=== PATIENT | female | born 1995 | race Caucasian/White ===

== ENCOUNTER 2023-11-25 19:24 | Outpatient (REF) | payer BC, SELFPAY | END 2023-11-25 19:25 | disposition home or self-care (01) | LOC: LAB 19:24 | PROVIDERS: PCP Physician Assistant; Visit Provider Obstetrics & Gynecology | DX: Z01.419 Encounter for gynecological examination (general) (routine) without abnormal findings (principal) | CPT/HCPCS: 88175 ==

== ENCOUNTER 2024-12-03 18:45 | Outpatient (REF) | payer BC, SELFPAY ==
--- OUTSIDE RECORDS SUMMARY | 2024-12-03 14:00 | XMS_ITS | Encounter Summary ---
Author Organization [facility] Address [address] [place] [address] Care Team Providers Care Vehicle Trimmer Name Role Phone Antolin Ruiz Primary Care Provider [phone] Reason for Visit * Reason Comments Well Women Visit Encounter Details Date Type Department Care Team (Late st Contact Info) Description 12/03/2024 2:00 PM EDT Office Visit [facility] [address] [place] [address] Daly Morillo PA [address] [place] [address] Well woman exam with routine gynecological exam Social History Tobacco Use Types Packs/Day Years Used Date Smoking Tobacco: Never Smokeless Tobacco: Never Alcohol Use Standard Drinks/Week Comments Not Currently 0 (1 standard drink = 0.6 oz pur e alcohol) occasional B1300 Health Literacy Answer Date Recor ded How often do you need to hav e someone help you when you read instructions, pamphlets, or other written material from your doctor or pharmacy? Never 10/14/2024 Humiliation, Afraid, Rape, and Kick questionnair e Answer Date Recorded Within the last year, have y ou been afraid of your partner or ex-partner? No 10/14/2024 Within the last year, have y ou been humiliated or emotionally abused in other ways by your partner or ex-partner? No Within the last year, have y ou been kicked, hit, slapped, or otherwise physically hurt by your partner or ex-partner? No 10/14/2024 Within the last year, have y ou been raped or forced to have any kind of sexual activity by your partner or ex-partner? No 10/14/2024 Social Connection and Isolat ion Panel [NHANES] Answer Date Recorded In a typical week, how many times do you talk on the phone with family, friends, or neighbors? More than three times a week 10/14/2024 How often do you get togethe r with friends or relatives? Twice a week 10/14/2024 How often do you attend chur or scientology services? Never 10/14/2024 Do you belong to any clubs o r organizations such as amish groups, unions, fraternal or athletic groups, or school groups? No 10/14/2024 How often do you attend meet ings of the clubs or organizations you belong to? Never 10/14/2024 Are you , , di vorced, , never , or living with a partner? Never 10/14/2024 AUDIT-C Answer Date Recorded Q1: How often do you have a drink containing alc ohol? 2-4 times a month 10/14/2024 Q2: How many drinks containi ng alcohol do you have on a typical day when you are drinking? 3 or 4 10/14/2024 Q3: How often do you have si x or more drinks on one occasion? Never 10/14/2024 Overall Financial Resource Strain (CARDIA) Answe r Date Recorded How hard is it for you to pa y for the very basics like food, housing, medical care, and heating? Not hard at all 10/14/2024 PHQ-2 Answer Date Recorded Patient Health Questionnaire-2 Score 2 10/14/2024 [facility] - Occupational Stress Questionnaire Answer Date Recorded Do you feel stress - tense, restless, nervous, or anxious, or unable to sleep at night because your mind is troubled all the time - these days? Rather much 10/14/2024 Exercise Vital Sign Answer Date Recorde d On average, how many days pe r week do you engage in moderate to strenuous exercise (like a brisk walk)? 0 days 10/14/2024 On average, how many minutes do you engage in exercise at this level? 0 min 10/14/2024 Hunger Vital Sign Answer Date Recorded Within the past 12 months, y ou worried that your food would run out before you got the money to buy more. Never true 10/15/19 25 Within the past 12 months, t he food you bought just didn't last and you didn't have money to get more. Never true 10/14/2024 PRAPARE - Transportation Answer Date Re corded In the past 12 months, has l ack of transportation kept you from medical appointments or from getting medications? No 05/2024 In the past 12 months, has l ack of transportation kept you from meetings, work, or from getting things needed for daily living? No 10/14/2024 Housing Stability Vital Sign Answer Ismael e Recorded In the last 12 months, was t here a time when you were not able to pay the mortgage or rent on time? No 10/14/2024 Number of Times Moved in the Last Year Not on fi le 10/14/2024 At any time in the [facility] were you homeless or living in a half-way (including now)? No 10/14/2024 Comments No Sex and Gender Information Value Date Recorded Sex Assigned at Not on file Legal Sex Female 8:15 PM EDT Gender Identity Not on file Sexual Orientation Not on file documented as of this encounter Last Filed Vital Signs Vital Sign Reading Time Taken Comments Blood Pressure 120/86 12/03/2024 1:55 PM EDT Pulse - - Temperature - - Respiratory Rate - - Oxygen Saturation - - Inhaled Oxygen Concentration - - Weight 82.4 kg (181 lb 12 oz) 12/03/2024 1:55 PM EDT Height 167.6 cm (5' 6 ) 12/03/2024 1:55 PM EDT Body Mass Index 29.34 12/03/2024 1:55 PM EDT documented in this encounter Progress Notes * BRENDA Espinoza - 12/03/2024 2:00 PM EDT Reason for Appointment: Patient ID: Tian Wade is a 29 y.o. female who presents for Well Women Visit Patient presents today for Annual Exam. MEDICATIONS Current Outpatient Medications Medication Instructions busPIRone (BUSPAR) 30 mg, Oral, 2 times daily citalopram (CELEXA) 40 mg, Oral, Daily ALLERGIES No Known Allergies PROBLEMS Active Ambulatory Problems Diagnosis Date Noted ADORE (generalized anxiety disorder) 10/25/2022 Depression 10/25/2022 Dysmenorrhea 10/25/2022 Vitamin D deficiency 10/25/2022 Resolved Ambulatory Problems Diagnosis Date Noted Acute pelvic pain 10/25/2022 Atypical squamous cells of undetermined significance (ASCUS) on Papanicolaou smear of cervix 10/25/2022 Dyslipidemia 10/25/2022 Dysuria 10/25/2022 Fatty liver 10/25/2022 Gastritis and duodenitis 10/25/2022 Headache disorder 10/25/2022 Migraine with aura and without status migrainosus, not intractable 10/25/2022 Migraine without aura and responsive to treatment 10/25/2022 Obesity 10/25/2022 Seasonal allergic rhinitis due to pollen 10/25/2022 Seasonal allergies 10/25/2022 Past Medical History: Diagnosis Date Anemia Anxiety ASCUS of cervix with negative high risk HPV Asthma (HCC) Goiter Migraine headache Vaginal delivery ([facility]-HCC) HISTORY PAST MEDICAL HISTORY SOCIAL HISTORY Past Medical History: Diagnosis Date Acute pelvic pain Anemia Anxiety ASCUS of cervix with negative high risk HPV Asthma (HCC) Atypical squamous cells of undetermined significance (ASCUS) on Papanicolaou smear of cervix 10/25/2022 Depression Dysmenorrhea Gastritis and duodenitis 10/25/2022 Goiter Migraine headache Migraine without aura and responsive to treatment 10/25/2022 Vaginal delivery ([facility]) Social History Tobacco Use Smoking status: Never Smokeless tobacco: Never Substance Use Topics Alcohol use: Not Currently Comment: occasional Drug use: Never FAMILY HISTORY Family History Problem Relation Name Age of Onset Obesity Mother Depression Mother Allergies Mother Other (thyroid issue) Mother Hypertension Mother Anemia Daughter Other (hx of kidney reflux) Daughter Anemia Maternal Grandmother Other (thyroid issue) Maternal Grandmother Mental illness Maternal Grandmother Diabetes Maternal Grandfather Hyperlipidemia Maternal Grandfather Heart disease Maternal Grandfather Cancer Maternal Grandfather Diabetes Paternal Grandmother Diabetes Paternal Grandfather SURGICAL HISTORY Past Surgical History: Procedure Laterality Date SECTION, CLASSIC 07/25/2022 SECTION, LOW TRANSVERSE REVIEW OF SYSTEMS Review of Systems: Review of Systems Constitutional: Negative. HENT: Negative. Eyes: Negative. Respiratory: Negative. Cardiovascular: Negative. Gastrointestinal: Negative. Genitourinary: Negative. Musculoskeletal: Negative. Skin: Negative. Neurological: Negative. All other systems reviewed and are negative. Hematological: Negative. Endocrine: Negative. Allergic/Immunologic: Negative. OBJECTIVE Objective: Physical Exam Constitutional: Appearance: Normal appearance. She is well-developed. Genitourinary: Vulva normal. Right Adnexa: not tender and no mass present. Left Adnexa: not tender and no mass present. No cervical discharge. IUD strings visualized. Breasts: Breasts are soft. Right: Normal. Left: Normal. HENT: Head: Normocephalic. Nose: Nose normal. Mouth/Throat: Mouth: Mucous membranes are moist. Cardiovascular: Rate and Rhythm: Normal rate and regular rhythm. Pulmonary: Effort: Pulmonary effort is normal. Breath sounds: Normal breath sounds. Abdominal: General: Bowel sounds are normal. There is no distension. Palpations: Abdomen is soft. Tenderness: There is no abdominal tenderness. There is no guarding or rebound. Musculoskeletal: General: No swelling. Normal range of motion. Cervical back: Normal range of motion. Right lower leg: No edema. Left lower leg: No edema. Neurological: General: No focal deficit present. Mental Status: She is alert and oriented to person, place, and time. Skin: General: Skin is warm and dry. Psychiatric: Mood and Affect: Mood normal. Behavior: Behavior normal. Vitals and nursing note reviewed. Exam conducted with a human resources associate present. Vitals: Estimated body mass index is 29.34 kg/m?? as calculated from the following: Height as of this encounter: 5' 6 . Weight as of this encounter: 181 lb 12 oz. BP: 120/86 No LMP recorded (lmp unknown). (Menstrual status: IUD). ASSESSMENT & PLAN ICD-10-CM 1. Well woman exam with routine gynecological exam Z01.419 Pap Smear HPV DNA probe, amplified Annual Exam: Patient presents today for an annual exam. Patient states she is doing well and has no complaints. Pap was obtained without difficulty. Orders Placed This Encounter Procedures HPV DNA probe, amplified Follow Up: Patient is to return in one year for annual unless needed otherwise. Documented by Sharla Hewitt LPN on behalf of: BRENDA Espinoza documented in this encounter Plan of Treatment Upcoming Encounters Date Type Department Care Team (Late st Contact Info) Description 12/06/2025 1:00 PM EDT Procedure Visit [facility] [address] [place] [address] Irving Trinidad DO [address] [place] [address] Scheduled Orders Name Type Priority Associated Diagnoses Orde r Schedule Pap Smear Pathology and Cytology Routine Well woman exam with routine gynecological exam Ordered: 12/03/2024 HPV DNA probe, amplified Microbiology Routine Well woman exam with routine gynecological exam Ordered: 12/03/2024 documented as of this encounter Visit Diagnoses Diagnosis Well woman exam with routine gynecological exam Routine gynecological examination documented in this encounter Additional Health Concerns Assessment Noted Time PHQ-9 Depression Total Score: 11 025 1:46 PM EDT documented as of this encounter Care Teams Vehicle Trimmer Relationship Specialty Start Date End Date Antolin Ruiz DO [address] [place] [id number] PCP - General Family Medicine 08/21/22 documented as of this encounter
--- OUTSIDE RECORDS SUMMARY | 2024-12-03 18:48 | XMS_ITS | Encounter Summary ---
Author Organization [facility] Address [address] [facility] [place] [address] Care Team Providers Care Mill Operator Helper Name Role Phone Antolin Ruiz Primary Care Provider [phone] Encounter Details Date Type Department Care Team (Late st Contact Info) Description 12/03/2024 Bamboo flowsheet [facility] [address] [place] [address] Daly Morillo PA [address] [place], [facility] Social History Tobacco Use Types Packs/Day Years [...] How often do you attend chur or restorationist services? Never 10/14/2024 Do you belong to any clubs o r organizations such as roman catholic groups, unions, [employer] or athletic groups, or school groups? No [...] Recorded Patient Health Questionnaire-2 Score 2 10/14/2024 [facility] - Occupational Stress Questionnaire Answer Date [...] any time in the past 12 m [facility], were you homeless or living in a care home (including now)? No 10/14/2024 Comments No Sex and Gender Information Value Date Recorded Sex Assigned at Not on file Legal Sex Female 8:15 PM EDT Gender Identity Not on file Sexual Orientation Not on file documented as of this encounter Plan of Treatment Upcoming Encounters Date Type Department Care Team (Late st Contact Info) Description 12/06/2025 1:00 PM EDT Procedure Visit [facility] [address] [place] [address] Irving Trinidad DO [address] [place], [place] [id number] documented as of this encounter Visit Diagnoses Not on filedocumented in this encounter Additional Health Concerns Assessment Noted Time PHQ-9 Depression Total Score: 11 025 1:46 PM EDT documented as of this encounter Care Teams Mill Operator Helper Relationship Specialty Start Date End Date Antolin Ruiz DO [address] [place], [place] [id number] PCP - General Family Medicine 08/21/22 documented as of this encounter
--- OUTSIDE RECORDS SUMMARY | 2024-12-03 18:48 | XMS_ITS | Encounter Summary ---
Author Organization [facility] Address [address], [address] [place] [address] Care Team Providers Care Cryptanalyst Name Role Phone Antolin Ruiz DO Primary Care Provider Reason for Visit * Reason Comments Medication Refill Encounter Details Date Type Department Care Team (Late st Contact Info) Description 05/06/2016 Refill [facility] [place] [address] [place] [phone] Lesley Grant APRN - LYLE [address] [facility] [address] [place] [address] Medication Refill Social History Tobacco Use Types Packs/Day Years Used Date Smoking Tobacco: Never Smokeless Tobacco: Never Alcohol Use Standard Drinks/Week Comments No 0 (1 standard drink = 0.6 oz pur e alcohol) Comments No Sex and Gender Information Value Date Recorded Sex Assigned at Not on file Legal Sex Female 6:42 PM EST Gender Identity Not on file Sexual Orientation Not on file documented as of this encounter Plan of Treatment Not on file documented as of this encounter Visit Diagnoses Not on filedocumented in this encounter Care Teams Cryptanalyst Relationship Specialty Start Date End Date Antolin Ruiz DO [address] [place] [address] PCP - General Family Medicine 06/27/17 documented as of this encounter
--- OUTSIDE RECORDS SUMMARY | 2024-12-03 18:48 | XMS_ITS | Encounter Summary ---
Author Organization [facility] Address [address] [facility] [place] [address] Care Team Providers Care Electrical Troubleshooter Name Role Phone zeenat Nicolle Geoff FRONT OFFICE CLERK Unavailable [phone] Antolin Ruiz DO Primary Care Provider [phone] Dayna Rodriguez FRONT OFFICE CLERK Unavailable + zeenat Nicolle Tellez FRONT OFFICE CLERK Unavailable [phone] Encounter Details Date Type Department Care Team (Late Contact Info) Description 10/26/2022 Abstract [facility] [address] [facility] [place] [address] Daly Morillo PA [address] [facility] [address] [place] [address] Social History Tobacco Use Types Packs/Day Years Used Date Smoking Tobacco: Never Tobacco Cessation:Counseling Given: Not Answered Alcohol Use Standard Drinks/Week Comments Not Currently 0 (1 standard drink = 0.6 oz pur e alcohol) occasional Comments Unknown Sex and Gender Information Value Date Recorded Sex Assigned at Not on file Legal Sex Female 8:15 PM EDT Gender Identity Not on file Sexual Orientation Not on file documented as of this encounter Plan of Treatment Upcoming Encounters Date Type Department Care Team (Late Contact Info) Description 12/06/2025 1:00 PM EDT Procedure Visit [facility] [address] [facility] [place] [place] [address] Irving Trinidad DO [address] [facility] [place] [address] documented as of this encounter Visit Diagnoses Not on filedocumented in this encounter Care Teams Electrical Troubleshooter Relationship Specialty Start Date End Date Nicolle Anne NP [address] [place] [address] PCP - [facility] 10/13/22 Antolin Ruiz DO [address] [place] [address] PCP - General Family Medicine 08/21/22 Dayna Rodriguez NP [address] [place] [address] PCP - [facility] 06/14/23 Nicolle Anne NP [address] [place] [address] PCP - [facility] 09/14/23 documented as of this encounter
--- OUTSIDE RECORDS SUMMARY | 2024-12-03 18:48 | XMS_ITS | Encounter Summary ---
Author Organization [facility] Address [address] [place] [address] Care Team Providers Care Broodmare Foreman Name Role Phone Antolin Ruiz DO Primary Care Provider Reason for Visit * Reason Comments Medication Refill Encounter Details Date Type Department Care Team (Late st Contact Info) Description 09/19/2015 Refill [facility] [place] [address] [place] [address] [place] [phone] Lesley Grant APRN - LYLE [address] [facility] [address] [place] [address] Medication Refill Social History Tobacco [...] on filedocumented in this encounter Care Teams Broodmare Foreman Relationship Specialty Start Date End Date Antolin Ruiz DO [address] [place] [address] PCP - General Family Medicine 06/27/17 documented as of this encounter
--- OUTSIDE RECORDS SUMMARY | 2024-12-03 18:48 | XMS_ITS | Encounter Summary ---
Author Organization [facility] Address [address] [place] [address] Care Team Providers Care Cable Hooker Name Role Phone Antolin Ruiz DO Primary Care Provider [phone] Reason for Visit * Reason Comments Other Encounter Details Date Type Department Care Team (Late st Contact Info) Description 06/01/2014 [facility] [place] [address] [place] [address] Lesley Grant APRN - CN [address] [facility] [address] [place] [address] Other Social History Tobacco Use Types Packs/Day Years [...] on filedocumented in this encounter Care Teams Cable Hooker Relationship Specialty Start Date End Date Antolin Ruiz DO [address] [place] [address] PCP - General Family Medicine 06/27/17 documented as of this encounter
--- OUTSIDE RECORDS SUMMARY | 2024-12-03 18:48 | XMS_ITS | Encounter Summary ---
Author Organization [facility] Address [address] [place] [address] Care Team Providers Care Maternity Floor Supervisor Name Role Phone Antolin Ruiz DO Primary Care Provider Reason for Visit * Reason Comments Medication Refill Encounter Details Date Type Department Care Team (Late st Contact Info) Description 01/07/2017 Refill [facility] [place] [address] [place] [phone] Lesley Grant APRN - LYLE [address] [facility] [address] [place] [address] Medication Refill Social History Tobacco Use Types Packs/Day Years Used Date Smoking Tobacco: Never Smokeless Tobacco: Never Alcohol Use Standard Drinks/Week Comments No 0 (1 standard drink = 0.6 oz pur e alcohol) Comments Unknown Sex and Gender Information Value Date Recorded Sex Assigned at Not on file Legal Sex Female 6:42 PM EST Gender Identity Not on file Sexual Orientation Not on file documented as of this encounter Plan of Treatment Not on file documented as of this encounter Visit Diagnoses Diagnosis Routine gynecological examination documented in this encounter Care Teams Maternity Floor Supervisor Relationship Specialty Start Date End Date Antolin Ruiz DO [address] [place] [address] PCP - General Family Medicine 06/27/17 documented as of this encounter
--- OUTSIDE RECORDS SUMMARY | 2024-12-03 18:48 | XMS_ITS | Clinical Summary ---
Author Organization [facility] Address [address] [place] [address] Care Team Providers Care Fleet Service Clerk Name Role Phone Joseph Antolin Aguayo DO Primary Care Provider [phone] Allergies No known active allergies Medications busPIRone (Buspar) 30 MG tabletIndicatio ns:Generalized anxiety disorder Take 1 tablet (30 mg) by mouth in the morning and 1 tablet (30 mg) before bedtime. 60 tablet 11 08/03/2024 Active citalopram (CeleXA) 40 MG tabletIndicatio ns:Anxiety TAKE 1 TABLET BY MOUTH DAILY 90 tablet 1 10/11/2024 Active Hospital, Clinic, or Other Facility Administered Medication Ordered Dose Route Frequency Start Date End Date Status Levonorgestrel intrauterine device 52 mgIndications:Encounter for IUD insertion 52 mg IU Continuous 11/19/2023 11/17/2028 Active Active Problems Problem Noted Date Diagnosed Date ADORE (generalized anxiety disorder) 10/25/2022 Depression 10/25/2022 Dysmenorrhea 10/25/2022 Vitamin D deficiency 10/25/2022 Resolved Problems Problem Noted Date Diagnosed Date Resolved Date Acute pelvic pain 10/25/2022 05/06/2023 Atypical squamous cells of u ndetermined significance (ASCUS) on Papanicolaou smear of cervix 10/25/2022 05/06/2023 Dyslipidemia 10/25/2022 05/06/2023 Dysuria 10/25/2022 05/06/2023 Fatty liver 10/25/2022 05/06/2023 Gastritis and duodenitis 10/25/2022 Headache disorder 10/25/2022 05/06/2023 Migraine with aura and witho ut status migrainosus, not intractable 10/25/2022 05/06/2023 Migraine without aura and re sponsive to treatment 10/25/2022 05/06/2023 Obesity 10/25/2022 05/06/2023 Seasonal allergic rhinitis due to pollen 10/25/2022 05/06/2023 Seasonal allergies 10/25/2022 Encounters Date Type Department Care Team Description 12/03/2024 2:00 PM EDT Office Visit [facility] [address] [place] [address] Daly Morillo PA Well woman exam with routine gynecological exam 12/03/2024 Bamboo flowsheet [facility] OBGYJonnathan [address] [place] [address] Daly Morillo PA 11/26/2024 Travel 10/14/2024 1:00 PM EDT Office Visit [facility] [address] [place] [address] Dayna Rodriguez, ORI Wellness examination (Primary Dx); Weight gain; Dysmenorrhea; ADORE (generalized anxiety disorder) ; Recurrent major depressive disorder, in partial remission ; Screening for cardiovascular condition; Blood tests for routine general physical examination; Abnormal glucose; Screening for thyroid disorder; Vitamin D deficiency; Encounter for vitamin deficiency screening; Screening for lipid disorders; Screening for diabetes mellitus (DM) 10/14/2024 Bamboo flowsheet [facility] [address] [facility] [place] [address] Dayna Rodriguez NP 10/14/2024 Travel 10/10/2024 Refill [facility] [address] [facility] [place] [address] Dayna Rodriguez, ORI Anxiety 09/11/2024 Refill [facility] [address] [place] [address] Harrison, Anali, STRUCTURAL METAL FABRICATOR APPRENTICE Anxiety from Last 3 Months Immunizations Immunization Administration Dates Next Due DTP 02/05/1996 DTP / HiB 02/14/1995,1994,1994 DTaP, Unspecified 11/30/1999,09/02/1997 HPV, Quadrivalent 05/18/2010,12/08/2009,10/07/19 10 Hep A, ped/adol, 2 dose 05/18/2010,10/06/2009 Hep B, Adolescent or Pediatric 02/14/1995,1994,1994 HiB, unspecified 09/02/1997 Influenza Whole 04/02/2013 Influenza, injectable, quadrivalent 01/12/2019 Influenza, injectable, quadr ivalent, preservative free 02/08/2022,03/02/2021 Influenza, seasonal, injectable 05/29/2020 Influenza, seasonal, injecta ble, preservative free 02/22/2011,02/08/2010 MMR 09/02/1997,02/05/1996 Meningococcal MCV4P 10/06/2009 Novel Aisoalyiq-[id number], nasal 03/04/2009 OPV 02/14/1995,1994,1994 Polio, Unspecified 11/30/1999 Tdap 04/01/2013,12/27/2008 Family History Medical History Relation Name Comments Anemia Daughter hx of kidney reflux Daughter Cancer Maternal Grandfather Diabetes Maternal Grandfather Heart disease Maternal Grandfather Hyperlipidemia Maternal Grandfather Anemia Maternal Grandmother Mental illness Maternal Grandmother thyroid issue Maternal Grandmother Allergies Mother Depression Mother Hypertension Mother Obesity Mother thyroid issue Mother Diabetes Paternal Grandfather Diabetes Paternal Grandmother Relation Name Status Comments Brother 1 Daughter 1 Father Alive Maternal Grandfather Alive Maternal Grandmother Alive Mother Alive Paternal Grandfather Paternal Grandmother Alive Sister 1 Social History Tobacco Use Types Packs/Day Years Used Date Smoking Tobacco: Never Smokeless Tobacco: Never Tobacco Cessation:Counseling Given: Not Answered [...] week 10/14/2024 How often do you attend [facility] or tenriism services? Never 10/14/2024 Do you belong to any clubs o r organizations such as cheondoism groups, unions, fraternal or athletic groups, or [...] Recorded Patient Health Questionnaire-2 Score 2 10/14/2024 [facility] - Occupational Stress [...] any time in the past 12 m [facility], were you homeless or living in a nursing home (including now)? No 10/14/2024 Comments No Sex and Gender Information Value Date Recorded Sex Assigned at Not on file Legal Sex Female 8:15 PM EDT Gender Identity Not on file Sexual Orientation Not on file Last Filed Vital Signs Vital Sign Reading Time Taken Comments Blood Pressure 120/86 12/03/2024 1:55 PM EDT Pulse 86 10/14/2024 1:14 PM EDT Temperature 35.5 C (95.9 F) 05/05/2024 9:33 AM EST Respiratory Rate - - Oxygen Saturation 98% 10/14/2024 1:14 PM EDT Inhaled Oxygen Concentration - - Weight 82.4 kg (181 lb 12 oz) 12/03/2024 1:55 PM EDT Height 167.6 cm (5' 6 ) 12/03/2024 1:55 PM EDT Body Mass Index 29.34 12/03/2024 1:55 PM EDT Plan of Treatment Upcoming Encounters Date Type Department Care Team (Late st Contact Info) Description 12/06/2025 1:00 PM EDT Procedure Visit [facility] [address] [place] [address] Irving Trinidad, [address] [place] [address] Health Maintenance Due Date Last Done Comments Influenza Vaccine (#1) 2024 , 03/02/2021, 05/29/2020, Additional history exists HPV/Cotest 06/16/2025 06/16/2020 Cervical Cancer Screening 11/24/2026 Pap Smear 11/24/2026 11/25/2023, 07/14, 01/07/2018, Additional history exists Procedures Procedure Name Priority Date/Time Associated Diagnosis Comments PAP SMEAR Routine 11/25/2023 12:00 AM EDT THINPREP AND HPV Routine 06/16/2020 12:0 0 PM EST from Last 3 Months or Most Recently Relevant to Health Maintenance Results * Pap Smear (11/25/2023 12:00 AM EDT) Swab Cervical swab / Unknown us Daly [facility] CYTOLOGY ORDERABLES Final Re sult EXTERNAL LAB * THINPREP AND HPV (06/16/2020 12:00 PM EST) PAP RESULTS negative [facility] 06/16/2020 12:0 0 PM EST us Nicolle Anen GUNNER'S MATE [facility] Final Result [facility] from Last 3 Months or Most Recently Relevant to Health Maintenance Insurance [facility] Care Teams Fleet Service Clerk Relationship Specialty Start Date End Date Antolin Ruiz DO [address] [place] [address] PCP - General Family Medicine 08/21/22
--- OUTSIDE RECORDS SUMMARY | 2024-12-03 18:48 | XMS_ITS | Clinical Summary ---
Author Organization [facility] Address [id number] [address] [place] [address] Care Team Providers Care Sports Centre Manager Name Role Phone Unavailable Primary Care Provider Unavailabl e Social History Tobacco Use Types Packs/Day Years Used Date Smoking Tobacco: Never Assessed Childcare Answer Date Recorded Childcare Unknown 09/22/2018 Employment Answer Date Recorded Employment Unknown 09/22/2018 Purpose - Life Answer Date Recorded Purpose and direction in life Unknown Comments Unknown Sex and Gender Information Value Date Recorded Sex Assigned at Not on file Legal Sex Female 2:07 PM EDT Gender Identity Not on file Sexual Orientation Not on file Plan of Treatment Not on file Medical Devices Not on file Insurance [employer]
--- OUTSIDE RECORDS SUMMARY | 2024-12-03 18:48 | XMS_ITS | Encounter Summary ---
Author Organization [facility] Address [address] [place] [address] Care Team Providers Care Aircraft Accessories Mechanic Name Role Phone JosephAntolin sanz Primary Care Provider [phone] Dayna Rodriguez CONTROL ELECTRICIAN Unavailable [phone] Nicolle Anne CONTROL ELECTRICIAN Unavailable [phone] Encounter Details Date Type Department Care Team (Late Contact Info) Description 08/05/2023 Abstract [facility] [address] [place] [address] Nicolle Anne CONTROL ELECTRICIAN [address] [place] [address] Social History Tobacco Use Types Packs/Day Years Used Date Smoking Tobacco: Never Smokeless Tobacco: Never Alcohol Use Standard Drinks/Week Comments Not Currently 0 (1 standard drink = 0.6 oz pur e alcohol) occasional PHQ-2 Answer Date Recorded Patient Health Questionnaire-2 Score 0 04/22/2023 Comments No Sex and Gender Information Value Date Recorded Sex Assigned at Not on file Legal Sex Female 8:15 PM EDT Gender Identity Not on file Sexual Orientation Not on file documented as of this encounter Plan of Treatment Upcoming Encounters Date Type Department Care Team (Late Contact Info) Description 12/06/2025 1:00 PM EDT Procedure Visit [facility] [address] [place] [address] Irving Trinidad DO [address] [place] [address] documented as of this encounter Visit Diagnoses Not on filedocumented in this encounter Additional Health Concerns Assessment Noted Time PHQ-9 Depression Total Score: 7 04/22/19 24 3:00 PM EST documented as of this encounter Care Teams Aircraft Accessories Mechanic Relationship Specialty Start Date End Date Antolin Ruiz DO [address] [place] [address] PCP - General Family Medicine 08/21/22 Dayna Rodriguez NP [address] [place] [address] PCP - [employer] 06/14/23 Nicolle Anne NP [address] [place] [address] PCP - [employer] 09/14/23 documented as of this encounter
--- OUTSIDE RECORDS SUMMARY | 2024-12-03 18:48 | XMS_ITS | Encounter Summary ---
Author Organization [facility] Address [address] [place] [address] Care Team Providers Care Driller'S Offsider Name Role Phone JosephAntolin wilks Primary Care Provider [phone] Encounter Details Date Type Department Care Team (Latest Contact Info) Description 11/26/2024 Travel Social History Tobacco Use Types Packs/Day Years [...] 10/14/2024 How often do you attend chur ch or yarsanism services? Never 10/14/2024 Do you belong to any clubs o r organizations such as mormonism groups, unions, fraternal or athletic groups, or [...] Recorded Patient Health Questionnaire-2 Score 2 10/14/2024 [facility] - Occupational [...] any time in the past 12 m [facility], were you homeless or living in a skilled nursing (including now)? No 10/14/2024 Comments No Sex [...] EDT Procedure Visit [facility] [address] [address] Irving Trinidad DO [address] [place], [place] [address] documented as of this encounter Visit Diagnoses Not on filedocumented in this encounter Additional Health Concerns Assessment Noted Time PHQ-9 Depression Total Score: 11 025 1:46 PM EDT documented as of this encounter Care Teams Driller'S Offsider Relationship Specialty Start Date End Date Antolin Ruiz DO [address] [place] [address] PCP - General Family Medicine 08/21/22 documented as of this encounter
--- OUTSIDE RECORDS SUMMARY | 2024-12-03 18:48 | XMS_ITS | Encounter Summary ---
Author Organization [facility] Address [address] [facility] [place] [address] Care Team Providers Care Regional Airline Pilot Name Role Phone Antolin Ruiz DO Primary Care Provider [phone] Nicolle Anne AUXILIARY EQUIPMENT TENDER Unavailable [phone] Encounter Details Date Type Department Care Team (Late Contact Info) Description 12/03/2023 Orders Only [facility] RYAN [address] [place] [address] [place] [address] Paulina Bolivar MA [address] [facility] [address] [place] [address] Social History Tobacco Use Types Packs/Day Years [...] EDT Procedure Visit [facility] R[facility] [address] [place] [address] Irving Trinidad DO [address] [facility] [address] [facility] [address] [place], [place] [id number] documented as of this encounter Procedures Procedure Name Priority Date/Time Associated Diagnosis Comments PAP SMEAR Routine 11/25/2023 12:00 AM EDT documented in this encounter Results * Pap Smear (11/25/2023 12:00 AM EDT) Swab Cervical swab / Unknown Daly [facility] CYTOLOGY ORDERABLES Final Re sult EXTERNAL LAB documented in this encounter Visit Diagnoses Not on filedocumented in this encounter Additional Health Concerns Assessment Noted Time PHQ-9 Depression Total Score: 7 04/22/19 24 3:00 PM EST documented as of this encounter Care Teams Regional Airline Pilot Relationship Specialty Start Date End Date Antolin Ruiz DO [address] [place], [place] [address] PCP - General Family Medicine 08/21/22 Nicolle Anne NP [address] [place] [address] PCP - Narciso Commercial 09/14/23 documented as of this encounter
--- OUTSIDE RECORDS SUMMARY | 2024-12-03 18:48 | XMS_ITS | Clinical Summary ---
Author Organization [facility] Address [address] [place] [address] Care Team Providers Care Oil Separator Name Role Phone Antolin Ruiz DO Primary Care Provider Allergies No known active allergies Medications VENTOLIN HFA 108 (90 BASE) MCG/ACT inhaler 2 puffs every 6 hours as needed 5 Active Loratadine (CLARITIN) 10 MG CAPS Take by mouth daily Active Vit-Fe Fumarate-FA ( VITAMIN PO) Take by mouth Acti ve ELDERBERRY PO Take by mouth Ac tive busPIRone (BUSPAR) 10 MG tablet 9 Active fluticasone (FLONASE) 50 MCG/ACT nasal spray 8 Active butalbital-acet aminophen-caffe ine (FIORICET, ESGIC) 50-325-40 MG per tabletIndicatio ns:Headache in , antepartum, second trimester Take 1 tablet by mouth every 4 hours as needed for Headaches 50 tablet 3 9 Active ibuprofen (ADVIL;MOTRIN) 600 MG tablet Take 1 tablet by mouth 3 times daily as needed for Pain 30 tablet 2 Active Active Problems Patient Care Coordination No te Formatting of this note migh t be different from the original. EDC in book = 10/11/2018 [place] [facility] risk assesment form = faxed testing = Patient desires History C/S ? = NA PT desires a doctor not a pigment furnace tender for this delivery Gender = Circ = Ped = Breast or bottle = breast Epidural/natural = RH factor = Rhogam? = Flu shot = TDAP (27-36 wks)= GBS = Card - Problem Noted Date Diagnosed Date Frequent UTI 11/02/2016 Irregular menses 04/26/2014 Resolved Problems Problem Noted Date Diagnosed Date Resolved Date with one fetus 03/31/2013 SROM (spontaneous rupture of membranes) 03/31/2013 05/15/2013 (normal spontaneous vaginal delivery) 03/31/2013 05/15/2013 Shoulder dystocia 03/31/2013 05/15/2013 Temperature elevated 03/31/2013 014 Immunizations Immunization Administration Dates Next Due Influenza Virus Vaccine 04/02/2013 TDaP, ADACEL (age 10y-64y), BOOSTRIX (age 10y+), IM, 0.5mL 04/01/2013 Family History Medical History Relation Name Comments Anemia Child Kidney Disease Child Kidney Reflux No Known Problems Father Diabetes Maternal Grandfather Heart Attack Maternal Grandfather Anemia Maternal Grandmother Depression Mother Miscarriages / Stillbirths Mother Diabetes Paternal Grandfather Diabetes Paternal Grandmother No Known Problems Sister Relation Name Status Comments Child Father Alive Maternal Grandfather Alive Maternal Grandmother Alive Mother Alive Paternal Grandfather Paternal Grandmother Alive Sister Alive Social History Tobacco Use Types Packs/Day Years Used Date Smoking Tobacco: Never Smokeless Tobacco: Never Alcohol Use Standard Drinks/Week Comments No 0 (1 standard drink = 0.6 oz pur e alcohol) PHQ-2 Answer Date Recorded PHQ-2 Score 0 07/16/2018 Comments No Sex and Gender Information Value Date Recorded Sex Assigned at Not on file Legal Sex Female 6:42 PM EST Gender Identity Not on file Sexual Orientation Not on file Last Filed Vital Signs Vital Sign Reading Time Taken Comments Blood Pressure 131/77 05/22/2022 8:36 AM EST Pulse 78 05/22/2022 8:36 AM EST Temperature 36.3 C (97.4 F) 05/22/2022 8:36 AM EST Respiratory Rate 18 05/22/2022 8:36 AM EST Oxygen Saturation 93% 05/22/2022 8:36 AM EST Inhaled Oxygen Concentration - - Weight 90.7 kg (200 lb) 06/02/2018 9:28 AM EST Height 170.2 cm (5' 7 ) 01/07/2018 1:50 PM EDT Body Mass Index 31.32 01/07/2018 1:50 PM EDT Plan of Treatment Health Maintenance Due Date Last Done Comments Depression Screen 2006 Varicella vaccine (1 of 2 - 13+ 2-dose series) 08/07/2007 Pap smear 01/07/2021 01/07/2018, 12/29/2015 DTaP/Tdap/Td vaccine (8 - Td or Tdap) 04/01/2023 04/01/2013, 12/27/2008, 11/30/1999, Additional history exists COVID-19 Vaccine ( season) 2023 Cervical cancer screen 2024 HPV (without or with Pap) 2024 Flu vaccine (#1) 11/13/2024 03/02/2021, , 04/02/2013, Additional history exists Hepatitis B vaccine Completed 02/14/1995, 1994, 1994 Hib vaccine Completed 09/02/1997, 05/1994, 1994, Additional history exists Polio vaccine Completed 11/30/1999, 05/1994, 1994, Additional history exists Meningococcal (ACWY) vaccine Aged Out 10/06/2009 No longer eligible based on patient's age to complete this topic HPV vaccine Completed 05/18/2010, 11/14, 10/06/2009 Hepatitis A vaccine Completed 05/18/2010, 0 HIV screen Completed 02/06/2018, 09/17/2012 Hepatitis C screen Completed 02/06/2018 Meningococcal B vaccine Aged Out No l onger eligible based on patient's age to complete this topic Pneumococcal 0-49 years Vaccine Aged Out No longer eligible based on patient's age to complete this topic Procedures Procedure Name Priority Date/Time Associated Diagnosis Comments HIV SCREEN Routine 02/06/2018 10:00 AM EDT Amenorrhea Positive urine test Encounter for supervision of normal in first trimester, unspecified HEPATITIS C ANTIBODY Routine 02/06/2018 10:00 AM EDT Amenorrhea Positive urine test Encounter for supervision of normal in first trimester, unspecified ROBOTIC MACHINE TENDER PRODUCTION CYTOLOGY Routine 01/07/2018 1:43 PM EDT from Last 3 Months or Most Recently Relevant to Health Maintenance Results * Hepatitis C Antibody (02/06/2018 10:00 AM EDT) Hepatitis C Ab NONREACTIVE NR 8 8:01 PM EDT [facility] Comment: The hepatitis C procedure used in our laboratory is a Chemiluminescent test specific for three recombinant HCV antigens. A negative anti-HCV result indicates that the antibodies to hepatitis C virus are not present at this time. Individuals with reactive anti-HCV should be considered infected and infectious until proven otherwise. Confirmation of all equivocal or reactive results is recommended by ordering HCV RNA by PCR. BLOOD SPECIMEN / Unknown 02/06/2018 10:00 AM EDT 02/06/2018 6:02 PM EDT En Das MD IMMUNOLOGY ORDERABLES Final R esult [facility] [address] [place] [address], [facility] [phone] [facility] [address] [place] [address], [facility] [phone] * HIV Screen (02/06/2018 10:00 AM EDT) HIV Ag/Ab NONREACTIVE NR 02/07/2018 6:43 PM EDT [facility] Comment: No laboratory evidence of HIV infection. If acute HIV infection is suspected, consider testing for HIV-1 RNA. BLOOD SPECIMEN / Unknown 02/06/2018 10:00 AM EDT 02/06/2018 6:02 PM EDT En Das MD IMMUNOLOGY ORDERABLES Final R esult Performing Organization Address City/[facility]/ZIP Co de Phone Number [facility] [address] [place] [id number], [facility] [phone] [facility] [address] [place] [address], [facility] [phone] * ROBOTIC MACHINE TENDER PRODUCTION Cytology (01/07/2018 1:43 PM EDT) Cytology Report (NOTE) [id number] [facility] ANATOMIC PATHOLOGY [address] [place] [address]. [place], [place] [address] GYNECOLOGIC CYTOLOGY REPORT Patient Name: PATRICIO WADE MR#: [id number] Specimen #[id number] Source: 1: Cervical material, (ThinPrep vial, Imaging-assisted review) Clinical History Contraceptive use Z01.419 Routine management assistant exam without abnormal findings High risk HPV DNA testing is requested if the diagnosis is abnormal LMP: 01/05/2018 INTERPRETATION Cervical material, (ThinPrep vial, Imaging-assisted review): Specimen Adequacy: Satisfactory for evaluation. - Endocervical/trans formation zone component present. - Scant cellularity, predominantly inflammatory exudate. Descriptive Diagnosis: Negative for intraepithelial lesion or malignancy. Shift in terri suggestive of bacterial vaginosis. Cyber Intelligence Analyst: KERVIN Espinoza(ASCP) Electronically Signed Out alicia/01/22/2018 01/22/2018 12:00 AM EDT [facility] 01/07/2018 1:43 PM EDT 01/08/2018 1:43 PM EDT Lesley Grant PARTY PLAN SALES UNIT ADVISOR - CNM PATHOLOGY/CYTOLOGY OR DERABLES Final Result [facility] [address] [place], [place] [address] [phone] [phone] from Last 3 Months or Most Recently Relevant to Health Maintenance Insurance Advance Directives * Full Code (Latest Code Status on File) Date Activated Date Inactivated Comments 03/31/2013 7:52 AM 04/02/2013 3:39 PM * Full Code Date Activated Date Inactivated Comments 03/30/2013 2:25 PM 03/31/2013 7:52 AM Care Teams Oil Separator Relationship Specialty Start Date End Date Antolin Ruiz DO [address] [place] [id number] PCP - General Family Medicine 06/27/17
--- OUTSIDE RECORDS SUMMARY | 2024-12-03 18:48 | XMS_ITS | Encounter Summary ---
Author Organization [facility] Address [address] [place] [address] Care Team Providers Care Research Animal Attendant Name Role Phone Antolin Ruiz DO Primary Care Provider [phone] Reason for Referral * Imaging (Routine) - Closed Specialty Diagnoses / Procedures Referred By Kalli gomez Referred To Contact Radiology Diagnoses Blood in stool Diaphoresis Procedures CT ABDOMEN PELVIS W IV CONTRAST Additional Contrast? Radiologist Recommendation Dayan Rodriguez APRN - NP [address] [place] [address] Phone: tel: fax: Referral ID Status Reason Start Date Expiration Date Visits Re quested Visits Authorized [id number] Closed 04/25/2023 04/24/2024 1 1 Encounter Details Date Type Department Care Team (Latest Contact Info) Description 04/25/2023 Transcribe Orders [facility] [address] [place] [address] Dayna Rodriguez APRN - TELEVISION CAMERAMAN [address] [place], [place] [address] Blood in stool (Primary Dx); Diaphoresis Social History Tobacco Use Types Packs/Day Years [...] as of this encounter Plan of Treatment Scheduled Orders Name Type Priority Associated Diagnoses Orde r Schedule CT ABDOMEN PELVIS W IV CONTRAST Additional Contrast? Radiologist Recommendation Imaging Routine Blood in stool Diaphoresis Expected: 04/25/2023, Expires: 04/25/2024 documented as of this encounter Visit Diagnoses Diagnosis Blood in stool- Primary Diaphoresis Generalized hyperhidrosis documented in this encounter Care Teams Research Animal Attendant Relationship Specialty Start Date End Date Antolin Ruiz DO [address] [place] [address] PCP - General Family Medicine 06/27/17 documented as of this encounter
--- OUTSIDE RECORDS SUMMARY | 2024-12-03 18:51 | XMS_ITS | CCD ---
Author Organization [facility] Care Team Providers Care Managing Supervisor Name Role Phone Fernando Wyatt Unavailable Unavailable SRINIVASAN NAIK Unavailable Unavailable Estrellita Richard DO Primary Care Provider WILDA, DR MARTINEZ Attending Unavailable WILDA, DR MARTINEZ Consulting Unavailable REQUEST, DR CALLEJAS LISTED Primary Care Unavaila ble WILDA, DR MARTINEZ Admitting Unavailable REQUEST, DR CALLEJAS LISTED Primary Care Unavaila ble WILDA, DR MARTINEZ Admitting Unavailable WILDA, DR MARTINEZ Attending Unavailable WILDA, DR MARTINEZ Consulting Unavailable Bobby, DR Caballero Consulting Unavailable Estrellita Richard DO Primary Care Provider ESTRELLITA RICHARD Primary Care Unavailable AMADO RODRIGUEZ Referring Unavailable ANA M BARRIGA Attending Unavailable ESTRELLITA RICHARD Primary Care Unavailable Estrellita Richard DO Primary Care Provider Nata Gottlieb NP Unavailable [phone] NATA GOTTLIEB Attending Unavailable AMADO RODRIGUEZ Attending Unavailable IRVING TRINIDAD Attending Unavailable DALY ROSENBAUM Attending Unavailable Allergies Allergy Classification Reported Allergen(s) Allergy Type Date of Onset Reaction(s) Facility (1 source) No Known Medication Allergies; Translations: [No Known Medication Allergies] Propensity to adverse reactions to drug (disorder) [facility] Repository (1 source) Adhesive agent Drug allergy (disorder) [address] [facility] Medications Current Medications Medication Drug Class(es) Dates Sig (Normalized) Sig (Original) acetaminophen 325 mg / butalbital 50 mg / caffeine 40 mg oral tablet (3 sources) Barbiturate, Central Nervous System Stimulant, Methylxanthine Start: 05-05-2018 take 1 tablet by mouth every four hours as needed for headache butalbital-acetam inophen-caffeine (FIORICET, ESGIC) 50-325-40 MG per tablet Indications: Headache in , antepartum, second trimester Take 1 tablet by mouth every 4 hours as needed for Headaches 50 tablet 3 05/05/2018 Active [id number] 200 actuat albuterol 0.09 mg/actuat metered dose inhaler (3 sources) beta2-Adrenergic Agonist Start: 08-31-2014 take 2 puff(s) by inhalation every six hours as needed VENTOLIN HFA 108 (90 BASE) MCG/ACT inhaler 2 puffs every 6 hours as needed 0 08/31/2014 Active amoxicillin 500 mg oral capsule (2 sources) Penicillin-class Antibacterial Start: 05-05-2024 End: 05-15-2024 take 1 capsule by mouth in the morning amoxicillin (Amoxil) 500 MG capsule Indications: Strep pharyngitis Take 1 capsule (500 mg) by mouth in the morning and 1 capsule (500 mg) before bedtime. Do all this for 10 days. 20 capsule 05/05/2024 05/15/2024 Active busPIRone hydrochloride 30 mg oral tablet (14 sources) Start: 09-13-2023 End: 08-03-2025 take 1 tablet by mouth in the morning busPIRone (Buspar) 30 MG tablet Indications: Generalized anxiety disorder Take 1 tablet (30 mg) by mouth in the morning and 1 tablet (30 mg) before bedtime. 60 tablet 11 08/03/2024 08/03/2025 Active Start: 04-28-2018 busPIRone (BUS PAR) 10 MG tablet citalopram 40 mg oral tablet (13 sources) Serotonin Reuptake Inhibitor Start: 11-22-2023 End: 10-11-2024 take 1 tablet by mouth once daily citalopram (CeleXA) 40 MG tablet Indications: Anxiety TAKE 1 TABLET BY MOUTH DAILY 90 tablet 1 10/11/2024 Active Elderberry preparation (3 sources) ELDERBERRY PO Ta ke by mouth 0 Active erythromycin 0.005 mg/mg ophthalmic ointment (2 sources) Macrolide, Macrolide Antimicrobial Start: 05-22-2022 End: 06-01-2022 erythromycin (ROMYCIN) 5 MG/GM ophthalmic ointment Apply to the 1/2 conjunctival sac bilaterally every 4 hours for 7 days. 1 each 0 05/22/2022 06/01/2022 Active Start: 05-22-2022 End: 05-22-2022 erythromycin (ROMYCIN) ophth almic ointment fluticasone propionate 0.05 mg/actuat metered dose nasal spray (3 sources) Corticosteroid Start: 04-14-2018 fluticasone (FLONASE) 50 MCG/ACT nasal spray ibuprofen 600 mg oral tablet (3 sources) Nonsteroidal Anti-inflammatory Drug Start: 05-13-2021 take 1 tablet by mouth three times daily as needed for pain ibuprofen (ADVIL;MOTRIN) 600 MG tablet Take 1 tablet by mouth 3 times daily as needed for Pain 30 tablet 0 05/13/2021 Active levonorgestrel 0.841841 mg/hr intrauterine system (11 sources) Progestin, Progestin-containing Intrauterine Device Start: 11-19-2023 End: 11-17-2028 Levonorgestrel intrauterine device 52 mg loratadine 10 mg oral capsule (3 sources) Loratadine (CLARITIN) 10 MG CAPS Take by mouth daily 0 Active Vit-Fe Fumarate-FA ( VITAMIN PO) (3 sources) Vit-Fe Fumarate-FA ( VITAMIN PO) Take by mouth 0 Active Completed/Discontinued Medications Medication Drug Class(es) Dates Sig (Normalized) Sig (Original) atomoxetine 25 mg oral capsule (8 sources) Norepinephrine Reuptake Inhibitor Start: 09-13-2023 End: 10-14-2024 take 1 capsule by mouth once daily atomoxetine (Strattera) 25 MG capsule Indications: Difficulty concentrating Take 1 capsule (25 mg) by mouth Daily Swallow capsule whole; do not open. If opened accidentally, do not touch eyes; wash hands immediately (product is an eye irritant). 30 capsule 2 09/13/2023 10/14/2024 Discontinued Problems Active Problems Problem Classification Problem Date Documented Da te Episodic/Chronic Anxiety disorders (15 sources) Anxiety; Translations: [Anxiety disorder, unspecified] Onset: 10-25-2022 10-25-2022 Chronic Diabetes mellitus without complication (4 sources) Other abnormal glucose; Translations: [Abnormal glucose level] Onset: 04-22-2023 Episodic Gastrointestinal hemorrhage (2 sources) Melena; Translations: [Melena] Onset: 04-22-2023 Episodic Immunizations and screening for infectious disease (1 source) Encounter for screening for human papillomavirus (HPV); Translations: [ENC SCREENING HUMAN PAPILLOMAVIRUS] Onset: 10-25-2021 Episodic Malaise and fatigue (2 sources) Other fatigue; Translations: [Other fatigue] Onset: 04-22-2023 Episodic Menstrual disorders (16 sources) Irregular periods; Translations: [Irregular menstruation, unspecified] Onset: 04-26-2014 04-26-2014 Chronic Mood disorders (13 sources) Depressive disorder; Translations: [Depression] Onset: 10-25-2022 10-25-2022 Chronic Nutritional deficiencies (15 sources) Vitamin D deficiency, unspecified; Translations: [Vitamin D deficiency] Onset: 10-25-2022 Chronic Other nutritional; endocrine; and metabolic disorders (2 sources) Weight increased; Translations: [Abnormal weight gain] 10-14-2024 Episodic Other screening for suspected conditions (not mental disorders or infectious disease) (20 sources) Encounter for screening for malignant neoplasm of cervix; Translations: [Encounter for screening for nutritional disorder] Onset: 10-24-2021 Episodic Other upper respiratory infections (2 sources) Streptococcal sore throat; Translations: [Streptococcal pharyngitis] 05-05-2024 Episodic Superficial injury; contusion (1 source) Contusion of right knee; Translations: [Contusion of right knee, initial encounter] Episodic Past or Other Problems Problem Classification Problem Date Documented Da te Episodic/Chronic Abdominal pain (15 sources) Pelvic and perineal pain; Translations: [Acute pelvic pain] Onset: 10-27-2021 Resolved: 05-06-2023 Episodic Cancer of cervix (11 sources) Atypical squamous cells of undetermined significance on cervical Papanicolaou smear; Translations: [Atypical squamous cells of undetermined significance on cytologic smear of cervix (ASC-US)] Onset: 10-25-2022 Resolved: 05-06-2023 05-06-2023 Episodic Disorders of lipid metabolism (11 sources) Dyslipidemia; Translations: [Hyperlipidemia, unspecified] Onset: 10-25-2022 Resolved: 05-06-2023 05-06-2023 Chronic Fever of unknown origin (3 sources) Body temperature above reference range; Translations: [Fever, unspecified] Onset: 03-31-2013 Resolved: 05-15-2013 05-15-2013 Episodic Gastritis and duodenitis (11 sources) Gastroduodenitis; Translations: [Gastroduodenitis, unspecified, without bleeding] Onset: 10-25-2022 Resolved: 05-06-2023 05-06-2023 Episodic Genitourinary symptoms and ill-defined conditions (11 sources) Dysuria; Translations: [Dysuria] Onset: 10-25-2022 Resolved: 05-06-2023 05-06-2023 Episodic Headache; including migraine (20 sources) Migraine with aura; Translations: [Migraine with aura, not intractable, without status migrainosus] Onset: 10-25-2022 Resolved: 05-06-2023 05-06-2023 Chronic Headache; including migraine (11 sources) Headache disorder; Translations: [Headache disorder] Onset: 10-25-2022 Resolved: 05-06-2023 05-06-2023 Episodic Inflammation; infection of eye (except that caused by tuberculosis or sexually transmitteddisease) (2 sources) Bilateral eye blepharoconjunctivi tis; Translations: [Unspecified blepharoconjunctivi tis, bilateral] Onset: 05-22-2022 Episodic Mood disorders (11 sources) Mood disorders Onset: 04-22-2023 Resolved: 10-14-2024 04-22-2023 Other liver diseases (11 sources) Steatosis of liver; Translations: [Fatty (change of) liver, not elsewhere classified] Onset: 10-25-2022 Resolved: 05-06-2023 05-06-2023 Chronic Other nutritional; endocrine; and metabolic disorders (11 sources) Obesity; Translations: [Obesity, unspecified] Onset: 10-25-2022 Resolved: 05-06-2023 05-06-2023 Chronic Other conditions (3 sources) Shoulder girdle dystocia; Translations: [Shoulder dystocia] Onset: 03-31-2013 Resolved: 05-15-2013 05-15-2013 Episodic Other and delivery including normal (6 sources) ; Translations: [Encounter for supervision of normal , unspecified, unspecified trimester] Onset: 03-31-2013 Resolved: 05-15-2013 05-15-2013 Episodic Other upper respiratory disease (11 sources) Allergic rhinitis due to pollen; Translations: [Allergic rhinitis due to pollen] Onset: 10-25-2022 Resolved: 05-06-2023 05-06-2023 Chronic Other upper respiratory disease (11 sources) Seasonal allergy; Translations: [Other seasonal allergic rhinitis] Onset: 10-25-2022 Resolved: 05-06-2023 05-06-2023 Chronic Unclassified (3 sources) Spontaneous rupture of membranes; Translations: [SROM (spontaneous rupture of membranes)] Onset: 03-31-2013 Resolved: 05-15-2013 05-15-2013 Urinary tract infections (3 sources) Recurrent urinary tract infection; Translations: [Urinary tract infection, site not specified] Onset: 11-02-2016 11-02-2016 Episodic Results Test Name Value Interpretation Reference Range Facility Hemoglobin A1Con 04-23-2023 Glucose [Mass/Vol] 85 mg/dL Normal [facility] Comment on above: Result Comment: The ADA and AACC recommend providing the estimated average glucose result to permit better patient understanding of their HBA1c result. Performed By: #### C KELBY CARRILLO, CP #### [address] [place] [id number] Cabinet Abrasive Sandblaster: Gabriel Banks MD #### LEORA BEE, VD25 #### [facility] [employer] [address] [place] [address] Cabinet Abrasive Sandblaster: Bill Cruz MD HbA1c (Bld) [Mass fraction] 4.6 % Normal 4.0-6.0 [facility] Comment on above: Performed By: #### C GERARDO TSHEsteban, CP #### [address] [place] [phone] Cabinet Abrasive Sandblaster: Gabriel Banks MD #### GORGE BEEHGB, VD25 #### [facility] [employer] [address] [place] [address] Cabinet Abrasive Sandblaster: Bill Cruz MD Lipid Profileon 04-23-2023 Cholesterol [Mass/Vol] 147 mg/dL Normal <200 [facility] Comment on above: Result Comment: Cholesterol Guidelines: <200 Desirable 200-240 Borderline >240 Undesirable Performed By: #### C KELBY CARRILLO, CP #### [facility] [address] [place] [address] [address] [place], [place] [phone] Cabinet Abrasive Sandblaster: Gabriel Banks MD #### LIPR, GLYHGB, VD25 #### [facility] [employer] [facility] [place], [place] [id number] Cabinet Abrasive Sandblaster: Bill Cruz MD Cholesterol in HDL [Mass/Vol] 42 mg/dL Normal >40 [facility] Comment on above: Result Comment: HDL Guidelines: <40 Undesirable 40-59 Borderline >59 Desirable Performed By: #### C DP, TSHX, CP #### [facility] [address] [place] [address] [address] [place], [place] [phone] Cabinet Abrasive Sandblaster: Gabriel Banks MD #### LIPR, GLYHGB, VD25 #### [place] [id number] [place], [place] [phone] Cabinet Abrasive Sandblaster: Bill Cruz MD Cholesterol in LDL [Mass/Vol] 80 mg/dL Normal 0-130 [facility] Comment on above: Result Comment: LDL Guidelines: <100 Desirable 100-129 Near to/above Desirable 130-159 Borderline >159 Undesirable Direct (measured) LDL and calculated LDL are not interchangeable tests. Performed By: #### C DP, TSHX, CP #### [address] [place], [place] [phone] Cabinet Abrasive Sandblaster: Gabriel Banks MD #### LIPR, GLYHGB, VD25 #### [facility] [employer] [facility] [place] [address] Cabinet Abrasive Sandblaster: Bill Cruz MD Cholesterol.total/C holesterol in HDL [Mass ratio] 3.5 {ratio} Normal <5 [facility] Comment on above: Performed By: #### C DP, TSHX, CP #### [facility] [address] [place] [address] Dr. [place], [place] [phone] Cabinet Abrasive Sandblaster: Gabriel Banks MD #### LIPR, GLYHGB, VD25 #### [place] [id number] [place] [address] Cabinet Abrasive Sandblaster: Bill Cruz MD Triglyceride [Mass/Vol] 124 mg/dL Normal <150 [facility] Comment on above: Result Comment: Triglyceride Guidelines: <150 Desirable 150-199 Borderline 200-499 High >499 Very high Based on AHA Guidelines for fasting triglyceride, January 2012. Performed By: #### C DP, TSHX, CP #### [address] [place] [address] Cabinet Abrasive Sandblaster: Gabriel Banks MD #### LIPR, GLYHGB, VD25 #### [address] [address] Cabinet Abrasive Sandblaster: Bill Cruz MD Stool PCR Batteryon 04-23-19 24 Campylobacter sp PCR NEGATIVE: No Campylobacter spp. (jejuni or coli) DNA Detected Normal CAMNEG [facility] Comment on above: Performed By: #### S TLPCR #### [address] [address] Cabinet Abrasive Sandblaster: Bill Cruz MD [address] [place] [address] Cabinet Abrasive Sandblaster: Gabriel Banks MD #### OBN #### [address] [place] [address] Cabinet Abrasive Sandblaster: Gabriel Banks MD E coli enterotox PCR NEGATIVE: No Enterotoxigenic E. coli (ETEC) Heat-labile and heat-stable (LT/ST) Normal EECNEG [facility] Comment on above: Result Comment: DNA Detected Performed By: #### S TLPCR #### [address] [address] Cabinet Abrasive Sandblaster: Bill Cruz MD [address] [place] [address] Cabinet Abrasive Sandblaster: Gabriel Banks MD #### OBN #### [address] [place] [address] Cabinet Abrasive Sandblaster: Gabriel Banks MD Plesiomonas sp PCR Negative [facility] Comment on above: Performed By: #### S TLPCR #### [facility] [address] [place] [address] Cabinet Abrasive Sandblaster: Bill Cruz MD [facility] [address] [place] [address] [place] [address] Cabinet Abrasive Sandblaster: Gabriel Banks MD #### OBN #### [facility] [address] [place] [address] [place] [address] Cabinet Abrasive Sandblaster: Gabriel Banks MD Salmonella sp PCR Negative [facility] Comment on above: Performed By: #### S TLPCR #### [facility] [address] [place] [address] Cabinet Abrasive Sandblaster: Bill Cruz MD [facility] [address] [place] [address] [place] [address] Cabinet Abrasive Sandblaster: Gabriel Banks MD #### OBN #### [address] [place] [address] Cabinet Abrasive Sandblaster: Gabriel Banks MD Shigatoxin gene PCR Negative Normal STXNEG [facility] Comment on above: Performed By: #### S TLPCR #### [facility] [address] [place] [address] Cabinet Abrasive Sandblaster: Bill Cruz MD [facility] [address] [place] [address] [place] [address] Cabinet Abrasive Sandblaster: Gabriel Banks MD #### OBN #### [facility] [address] [place] [address] [place] [address] Cabinet Abrasive Sandblaster: Gabriel Banks MD Shigella sp PCR Negative Normal SHINEG [facility] Comment on above: Performed By: #### S TLPCR #### [facility] [address] [place] [address] Cabinet Abrasive Sandblaster: Bill Cruz MD [facility] [address] [place] [address] [place] [address] Cabinet Abrasive Sandblaster: Gabriel Banks MD #### OBN #### [facility] [address] [place] [address] [place] [address] Cabinet Abrasive Sandblaster: Gabriel Banks MD Vibrio sp PCR NEGATIVE: No Vibrio (V. vulnificus, V, parahaemolyticus and V. cholerae) DNA Normal VIBNEG [facility] Comment on above: Result Comment: Dete cted Performed By: #### S TLPCR #### [facility] [address] [place] [address] Cabinet Abrasive Sandblaster: Bill Cruz MD [facility] [address] [place] [address] [place] [address] Cabinet Abrasive Sandblaster: Gabriel Banks MD #### OBN #### [facility] [address] [place] [address] [place] [address] Cabinet Abrasive Sandblaster: Gabriel Banks MD Yersinia gene PCR Negative Normal YERNEG [facility] Comment on above: Performed By: #### S TLPCR #### [facility] [address] [facility] [place] [address] Cabinet Abrasive Sandblaster: Bill Cruz MD [facility] [address] [place] [address] [place] [address] Cabinet Abrasive Sandblaster: Gabriel Banks MD #### OBN #### [facility] [address] [place] [address] [place] [address] Cabinet Abrasive Sandblaster: Gabriel Banks MD Vitamin D 25 OHon 04-23-2023 Vitamin D 25 [place] 21.6 ng/mL Low >29.9 [facility] Comment on above: Result Comment: Reference Range: Vitamin D status Range Deficiency <20 ng/mL Mild Deficiency 20-30 ng/mL Sufficiency 30-100 ng/mL Toxicity >100 ng/mL Performed By: #### C DP, TSHX, CP #### [address] [place] [phone] Cabinet Abrasive Sandblaster: Gabriel Banks MD #### LIPR, GLYHGB, VD25 #### [address] [phone] Cabinet Abrasive Sandblaster: Bill Cruz MD CBC with Diffon 04-22-2023 Abs. Basophil 0.03 k/uL Normal 0.00-0.20 [facility] Comment on above: Performed By: #### C DP, TSHX, CP #### [address] [place] [phone] Cabinet Abrasive Sandblaster: Gabriel Banks MD #### LIPR, GLYHGB, VD25 #### [address] [id number] Cabinet Abrasive Sandblaster: Bill Cruz MD Abs.Imm.Granulocyte <0.03 Normal 0.00-0.30 [facility] Comment on above: Performed By: #### C DP, TSHX, CP #### [address] [place] [phone] Cabinet Abrasive Sandblaster: Gabriel Banks MD #### LIPNona, GLYHGB, VD25 #### [address] [id number] Cabinet Abrasive Sandblaster: Bill Cruz MD Abs.Neutrophil (Seg) 2.00 k/uL Normal 1.50-8.10 [facility] Comment on above: Performed By: #### C DP, TSHX, CP #### [address] [place] [phone] Cabinet Abrasive Sandblaster: Gabriel Banks MD #### LIPR, GLYHGB, VD25 #### [address] [id number] Cabinet Abrasive Sandblaster: Bill Cruz MD Basophils/100 WBC (Bld) 1 % Normal 0-2 [facility] Comment on above: Performed By: #### C DP, TSHX, CP #### [facility] [address] [place] [address] Dr. [place] [phone] Cabinet Abrasive Sandblaster: Gabriel Banks MD #### LIPR, GLYHGB, VD25 #### [address] [id number] Cabinet Abrasive Sandblaster: Bill Cruz MD Eosinophils (Bld) [#/Vol] 0.21 10*3/uL Normal 0.00-0.44 [facility] Comment on above: Performed By: #### C DP, TSHX, CP #### [address] [place] [phone] Cabinet Abrasive Sandblaster: Gabriel Banks MD #### LIPR, GLYHGB, VD25 #### [place] [address] Cabinet Abrasive Sandblaster: Bill Cruz MD Eosinophils/100 WBC (Bld) 4 % Normal 1-4 [facility] Comment on above: Performed By: #### C DP, TSHX, CP #### [address] [place] [phone] Cabinet Abrasive Sandblaster: Gabriel Banks MD #### LIPR, GLYHGB, VD25 #### [place] [address] Cabinet Abrasive Sandblaster: Bill Cruz MD Erythrocyte distribution width (RBC) [Ratio] 12.2 % Normal 11.8-14.4 [facility] Comment on above: Performed By: #### C DP, TSHX, CP #### [address] [place] [phone] Cabinet Abrasive Sandblaster: Gabriel Banks MD #### LIPR, GLYHGB, VD25 #### [address] [id number] Cabinet Abrasive Sandblaster: Bill Cruz MD Hematocrit (Bld) [Volume fraction] 36.6 % Normal 36.3-47.1 [facility] Comment on above: Performed By: #### C DP, TSHX, CP #### [address] [place] [phone] Cabinet Abrasive Sandblaster: Gabriel Banks MD #### LIPR, GLYHGB, VD25 #### [address] [phone] Cabinet Abrasive Sandblaster: Bill Cruz MD Hemoglobin (Bld) [Mass/Vol] 12.0 g/dL Normal 11.9-15.1 [facility] Comment on above: Performed By: #### C DP, TSHX, CP #### [facility] [address] [place] [address] [place] [phone] Cabinet Abrasive Sandblaster: Gabriel Banks MD #### LIPR, GLYHGB, VD25 #### [place] [phone] Cabinet Abrasive Sandblaster: Bill Cruz MD Immature granulocytes/100 WBC (Bld) 0 % Normal 0 [facility] Comment on above: Performed By: #### C DP, TSHX, CP #### [address] [place] [phone] Cabinet Abrasive Sandblaster: Gabriel Banks MD #### LIPR, GLYHGB, VD25 #### [address] [address] Cabinet Abrasive Sandblaster: Bill Cruz MD Lymphocytes (Bld) [#/Vol] 2.24 10*3/uL Normal 1.10-3.70 [facility] Comment on above: Performed By: #### C DP, TSHX, CP #### [facility] [address] [place] [address] [place] [phone] Cabinet Abrasive Sandblaster: Gabriel Banks MD #### LIPR, GLYHGB, VD25 #### [place] [address] [place] [address] Cabinet Abrasive Sandblaster: Bill Cruz MD Lymphocytes/100 WBC (Bld) 42 % Normal 24-43 [facility] Comment on above: Performed By: #### C DP, TSHX, CP #### [address] [place], [place] [phone] Cabinet Abrasive Sandblaster: Gabriel Banks MD #### LIPR, GLYHGB, VD25 #### [address] [address] Cabinet Abrasive Sandblaster: Blil Cruz MD MCH (RBC) [Entitic mass] 28.6 pg Normal 25.2-33.5 [facility] Comment on above: Performed By: #### C DP, TSHX, CP #### [address] [place] [phone] Cabinet Abrasive Sandblaster: Gabriel Banks MD #### LIPR, GLYHGB, VD25 #### [address] [address] Cabinet Abrasive Sandblaster: Bill Cruz MD MCHC (RBC) [Mass/Vol] 32.8 g/dL Normal 28.4-34.8 [facility] Comment on above: Performed By: #### C DP, TSHX, CP #### [address] [place], [place] [id number] Cabinet Abrasive Sandblaster: Gabriel Banks MD #### LIPR, GLYHGB, VD25 #### [place] [address] [place], [place] 1039108 Cabinet Abrasive Sandblaster: Bill Cruz MD MCV (RBC) [Entitic vol] 87.4 fL Normal 82.6-102.9 [facility] Comment on above: Performed By: #### C DP, TSHX, CP #### [address] [place] [address] Cabinet Abrasive Sandblaster: Gabriel Banks MD #### LIPR, GLYHGB, VD25 #### [address] [address] Cabinet Abrasive Sandblaster: Bill Cruz MD Monocytes (Bld) [#/Vol] 0.78 10*3/uL Normal 0.10-1.20 [facility] Comment on above: Performed By: #### C DP, TSHX, CP #### [facility] [address] [place] [address] Dr. [place], [place] [phone] Cabinet Abrasive Sandblaster: Gabriel Banks MD #### LIPR, GLYHGB, VD25 #### [address] [address] Cabinet Abrasive Sandblaster: Bill Cruz MD Monocytes/100 WBC (Bld) 15 % High 3-12 [facility] Comment on above: Performed By: #### C DP, TSHX, CP #### [address] [place] [phone] Cabinet Abrasive Sandblaster: Gabriel Banks MD #### LIPNona, GLYHGB, VD25 #### [address] [address] [address] Cabinet Abrasive Sandblaster: Bill Cruz MD Neutrophil (Seg) 38 % Normal 36-65 [facility] Comment on above: Performed By: #### C DP, TSHX, CP #### [facility] [address] [place] [address] [address] [place] [phone] Cabinet Abrasive Sandblaster: Gabriel Banks MD #### LIPR, GLYHGB, VD25 #### [address] [address] Cabinet Abrasive Sandblaster: Bill Cruz MD NRBC Automated 0.0 per 100 WBC Normal 0.0 [facility] Comment on above: Performed By: #### C DP, TSHX, CP #### [address] [place], [place] [phone] Cabinet Abrasive Sandblaster: Gabriel Banks MD #### LIPR, GLYHGB, VD25 #### [id number] [place] [address] Cabinet Abrasive Sandblaster: Bill Cruz MD Platelet mean volume (Bld) [Entitic vol] 9.4 fL Normal 8.1-13.5 [facility] Comment on above: Performed By: #### C DP, TSHX, CP #### [address] [place], [place] [phone] Cabinet Abrasive Sandblaster: Gabriel Banks MD #### LIPR, GLYHGB, VD25 #### [address] [address] Cabinet Abrasive Sandblaster: Bill Cruz MD Platelets (Bld) [#/Vol] 297 10*3/uL Normal 138-453 [facility] Comment on above: Performed By: #### C DP, TSHX, CP #### [address] [place] [phone] Cabinet Abrasive Sandblaster: Gabriel Banks MD #### LIPNona, GLYHGB, VD25 #### [address] [address] Cabinet Abrasive Sandblaster: Bill Cruz MD RBC (Bld) [#/Vol] 4.19 10*6/uL Normal 3.95-5.11 [facility] Comment on above: Performed By: #### C DP, TSHX, CP #### [address] [place], [place] [phone] Cabinet Abrasive Sandblaster: Gabriel Banks MD #### LIPR, GLYHGB, VD25 #### [address] [address] Cabinet Abrasive Sandblaster: Bill Cruz MD WBC (Bld) [#/Vol] 5.3 10*3/uL Normal 3.5-11.3 [facility] Comment on above: Performed By: #### C DP, TSHX, CP #### [facility] [address] [place] [address] Dr. [place], [place] [phone] Cabinet Abrasive Sandblaster: Gabriel Banks MD #### LIPR, GLYHGB, VD25 #### [address] [address] Cabinet Abrasive Sandblaster: Bill Cruz MD Comp Metabolic Profon 2023 Albumin [Mass/Vol] 4.6 g/dL Normal 3.5-5.2 [facility] Comment on above: Performed By: #### C DP, TSHX, CP #### [address] [place] [phone] Cabinet Abrasive Sandblaster: Gabriel Banks MD #### LIPR, GLYHGB, VD25 #### [address] [address] Cabinet Abrasive Sandblaster: Bill Cruz MD Albumin/Glob Ratio 1.6 Normal 1.0-2.5 [facility] Comment on above: Performed By: #### C DP, TSHX, CP #### [address] [place] [phone] Cabinet Abrasive Sandblaster: Gabriel Banks MD #### LIPNona, GLYHGB, VD25 #### [address] [address] Cabinet Abrasive Sandblaster: Bill Cruz MD Alkaline Phos 71 U/L Normal 35-104 [facility] Comment on above: Performed By: #### C DP, TSHX, CP #### [address] [place], [place] [phone] Cabinet Abrasive Sandblaster: Gabriel Banks MD #### LIPR, GLYHGB, VD25 #### [address] [address] Cabinet Abrasive Sandblaster: Bill Cruz MD ALT [Catalytic activity/Vol] 71 U/L High 5-33 [facility] Comment on above: Performed By: #### C DP, TSHX, CP #### [facility] [address] [place] [address] Dr. [place], [place] [phone] Cabinet Abrasive Sandblaster: Gabriel Banks MD #### LIPR, GLYHGB, VD25 #### [address] [id number] Cabinet Abrasive Sandblaster: Bill Cruz MD Anion gap [Moles/Vol] 10 mmol/L Normal 9-17 [facility] Comment on above: Performed By: #### C DP, TSHX, CP #### [address] [place], [place] [phone] Cabinet Abrasive Sandblaster: Gabriel Banks MD #### LIPNona, GLYHGB, VD25 #### [address] [phone] Cabinet Abrasive Sandblaster: Bill Cruz MD AST [Catalytic activity/Vol] 43 U/L High <32 [facility] Comment on above: Performed By: #### C DP, TSHX, CP #### [address] [place], [place] [phone] Cabinet Abrasive Sandblaster: Gabriel Banks MD #### LIPNona, GLYHGB, VD25 #### [address] [phone] Cabinet Abrasive Sandblaster: Bill Cruz MD Bilirubin [Mass/Vol] 0.2 mg/dL Low 0.3-1.2 [facility] Comment on above: Performed By: #### C DP, TSHX, CP #### [facility] [address] [place] [address] Dr. [place], [place] [phone] Cabinet Abrasive Sandblaster: Gabriel Banks MD #### LIPR, GLYHGB, VD25 #### [address] [phone] Cabinet Abrasive Sandblaster: Bill Cruz MD BUN/CRE Ratio 10 Normal 9-20 [facility] Comment on above: Performed By: #### C DP, TSHX, CP #### [facility] [address] [place] [address] Dr. [place], [place] [phone] Cabinet Abrasive Sandblaster: Gabriel Banks MD #### LIPR, GLYHGB, VD25 #### [address] [id number] Cabinet Abrasive Sandblaster: Bill Cruz MD Calcium [Mass/Vol] 9.6 mg/dL Normal 8.6-10.4 [facility] Comment on above: Performed By: #### C DP, TSHX, CP #### [address] [place] [phone] Cabinet Abrasive Sandblaster: Gabriel Banks MD #### CRISTAL, GLYHGB, VD25 #### [address] [phone] Cabinet Abrasive Sandblaster: Bill Cruz MD Chloride [Moles/Vol] 103 mmol/L Normal 98-107 [facility] Comment on above: Performed By: #### C DP, TSHX, CP #### [address] [place], [place] [phone] Cabinet Abrasive Sandblaster: Gabriel Banks MD #### CRISTAL GLYHGB, VD25 #### [address] [address] Cabinet Abrasive Sandblaster: Bill Cruz MD CO2 [Moles/Vol] 25 mmol/L Normal 20-31 [facility] Comment on above: Performed By: #### C DP, TSHX, CP #### [facility] [address] [place] [address] Dr. [place], [place] [phone] Cabinet Abrasive Sandblaster: Gabriel Banks MD #### LIPR, GLYHGB, VD25 #### [address] [id number] Cabinet Abrasive Sandblaster: Bill Cruz MD Creatinine [Mass/Vol] 0.7 mg/dL Normal 0.5-0.9 [facility] Comment on above: Performed By: #### C GERARDO TSHX, CP #### [facility] [address] [place] [address] [place] [address] Cabinet Abrasive Sandblaster: Gabriel Banks MD #### GORGE BEEHGB, VD25 #### [address] [phone] Cabinet Abrasive Sandblaster: Bill Cruz MD GFR/1.73 sq M.predicted among non-blacks MDRD (S/P/Bld) [Vol rate/Area] mL/min/{1.73_m2} Normal >60 [facility] Comment on above: Result Comment: These results are not intended for use in patients <18 years of age. eGFR results are calculated without a race factor using the 2020 CKD-EPI equation. Careful clinical correlation is recommended, particularly when comparing to results calculated using previous equations. The CKD-EPI equation is less accurate in patients with extremes of muscle mass, extra-renal metabolism of creatine, excessive creatine ingestion, or following therapy that affects renal tubular secretion. Performed By: #### C GERARDO TSHX, CP #### [address] [place], [place] [phone] Cabinet Abrasive Sandblaster: Gabriel Banks MD #### LEORA BEE, VD25 #### [address] [id number] Cabinet Abrasive Sandblaster: Bill Cruz MD Glucose [Mass/Vol] 83 mg/dL Normal 70-99 [facility] Comment on above: Performed By: #### C GERARDO TSHX, CP #### [address] [place] [address] Cabinet Abrasive Sandblaster: Gabriel Banks MD #### LIPNona, GLYHGB, VD25 #### [address] [address] Cabinet Abrasive Sandblaster: Bill Cruz MD Potassium [Moles/Vol] 4.2 mmol/L Normal 3.7-5.3 [facility] Comment on above: Performed By: #### C DP, TSHX, CP #### [facility] [address] [place] [address] Dr. [place], [place] [phone] Cabinet Abrasive Sandblaster: Gabriel Banks MD #### LIPR, GLYHGB, VD25 #### [address] [id number] Cabinet Abrasive Sandblaster: Bill Cruz MD Protein [Mass/Vol] 7.4 g/dL Normal 6.4-8.3 [facility] Comment on above: Performed By: #### C DP, TSHX, CP #### [facility] [address] [place] [address] Dr. [place] [phone] Cabinet Abrasive Sandblaster: Gabriel Banks MD #### LIPNona, GLYHGB, VD25 #### [address] [phone] Cabinet Abrasive Sandblaster: Bill Cruz MD Sodium [Moles/Vol] 138 mmol/L Normal 135-144 [facility] Comment on above: Performed By: #### C DP, TSHX, CP #### [address] [place], [place] 2010683 Cabinet Abrasive Sandblaster: Gabriel Banks MD #### LIPNona, GLYHGB, VD25 #### [address] [address] Cabinet Abrasive Sandblaster: Bill Cruz MD Urea nitrogen [Mass/Vol] 7 mg/dL Normal 6-20 [facility] Comment on above: Performed By: #### C DP, TSHX, CP #### [address] [place], [place] [phone] Cabinet Abrasive Sandblaster: Gabriel Banks MD #### LIPR, GLYHGB, VD25 #### [address] [address] Cabinet Abrasive Sandblaster: Bill Cruz MD Occult Blood, Fecalon 2023 Occult Blood 1 Negative Normal NEG [facility] Comment on above: Performed By: #### S TLPCR #### [facility] [address] [place] [address] Cabinet Abrasive Sandblaster: Bill Cruz MD [facility] [address] [place] [address] [place] [address] Cabinet Abrasive Sandblaster: Gabriel Banks MD #### OBN #### [address] [place] [address] Cabinet Abrasive Sandblaster: Gabriel Banks MD Specimen 1 Date [id number] [facility] Comment on above: Performed By: #### S TLPCR #### [address] [address] Cabinet Abrasive Sandblaster: Bill Cruz MD [facility] [address] [place] [address] [place] [address] Cabinet Abrasive Sandblaster: Gabriel Banks MD #### OBN #### [address] [place] [address] Cabinet Abrasive Sandblaster: Gabriel Banks MD Specimen 1 Time 1840 [facility] Comment on above: Performed By: #### S TLPCR #### [facility] [address] [place] [address] Cabinet Abrasive Sandblaster: Bill Cruz MD [facility] [address] [place] [address] [place] [address] Cabinet Abrasive Sandblaster: Gabriel Banks MD #### OBN #### [address] [place] [address] Cabinet Abrasive Sandblaster: Gabriel Banks MD Stool PCR [place] 04-22-19 24 Specimen Description .FECES [facility] Comment on above: Performed By: #### S TLPCR #### [address] [place], [place] [phone] Cabinet Abrasive Sandblaster: Bill Cruz MD [facility] [address] [place] [address] [place] [address] Cabinet Abrasive Sandblaster: Gabriel Bakns MD #### OBN #### [facility] [address] [place] [address] [place] [address] Cabinet Abrasive Sandblaster: Gabriel Banks MD TSH w/reflex to FT4on 2023 Thyroid Stim. Horm. 2.57 uIU/mL Normal 0.30-5.00 [facility] Comment on above: Performed By: #### C DP, TSHX, CP #### [address] [place] [address] Cabinet Abrasive Sandblaster: Gabriel Banks MD #### LIPR, GLYHGB, VD25 #### [facility] [address] [place], [place] [phone] Cabinet Abrasive Sandblaster: Bill Cruz MD US PELVIS AND TRANSVAGon US PELVIS AND TRANSVAG EXAMINATION: US PELVIS AND TRANSVAG HISTORY: Pelvic and perineal pain COMPARISON: Ultrasound pelvis 06/21/2020 TECHNIQUE: Transabdominal and transvaginal sonographic examination. FINDINGS: UTERUS: Normal size and appearance. Incidental nabothian cysts within wall of cervix. Uterus size: 8.0 4.7 x 3.5 cm ENDOMETRIUM: IUD within endometrial cavity. Normal homogeneous echotexture. Endometrial thickness: 5 mm RIGHT OVARY: Normal size and appearance. Duplex Doppler demonstrates normal waveform and flow; resistive index 0.4. Ovary size: 2.5 x 2.4 x 1.7 cm LEFT OVARY: Not seen. CUL-DE-SAC: Unremarkable. No significant free fluid. BLADDER: Unremarkable. OTHER: None. IMPRESSION: 1. IUD appears normally positioned within endometrial cavity. 2. No abnormal or suspicious findings to account for patient's symptoms. 3. Left ovary could not be identified. No suspicious left adnexal findings. Electronically authenticated by: KIKE DESAI Date: 2021-10-31 07:59 Normal [facility] PAP ACOG PANEL 2: 21 to 29on 10-28-2021 . . Normal [facility] Comment on above: Performed By: #### [id number] #### [facility] [address] [place] [address] Dr. Prosper Palomo Age Gdln ACOG Testing 21-29 [facility] Comment on above: Performed By: #### 4 [id number] #### [facility] [address] [place] [address] Dr. Prosper Palomo DIAGNOSIS: Comment [facility] Comment on above: Result Comment: NEGA TIVE FOR INTRAEPITHELIAL LESION OR MALIGNANCY. THIS SPECIMEN WAS RESCREENED PART OF OUR TELECOMMUNICATIONS FIELD TECHNICIAN PROGRAM. Performed By: #### 4 [id number] #### [facility] [address] [place] [address] Dr. Prosper Palomo Methodology: Comment [facility] Comment on above: Result Comment: This liquid based ThinPrep(R) pap test was screened with the use of an image guided system. Performed By: #### 4 [id number] #### [facility] [address] [place] [address] Dr. Prosper Palomo Note: Comment [facility] Comment on above: Result Comment: The Pap smear is a screening test designed to aid in the detection of premalignant and malignant conditions of the uterine cervix. It is not a diagnostic procedure and should not be used as the sole means of detecting cervical cancer. Both false-positive and false-negative reports do occur. . Performed By: #### 4 [id number] #### [facility] [address] [place] [address] Dr. Prosper Palomo Performed by: Comment Normal [facility] Comment on above: Result Comment: Benjamin Lorenz, Svp Programmatic Tv (ASCP) Performed By: #### 4 [id number] #### [facility] [address] [place] [address] Dr. Prosper Palomo QC reviewed by: Comment Normal [facility] Comment on above: Result Comment: Babatunde Montenegro, Svp Programmatic Tv Performed By: #### 4 [id number] #### [facility] [address] [address] [address] Prosper Palomo Reflex Criteria: Comment Normal [facility] Comment on above: Result Comment: The HPV DNA reflex criteria were not met with this specimen result therefore, no HPV testing was performed. . Performed By: #### 4 [id number] #### [facility] [address] [address] [address] Prosper Palomo Specimen adequacy: Comment Normal [facility] Comment on above: Result Comment: Sati sfactory for evaluation. Endocervical and/or squamous metaplastic cells (endocervical component) are present. Performed By: #### 4 [id number] #### [facility] [address] [address] [address] Prosper Palomo CBC with Auto Differentialon 06-13-2021 Absolute Eos # 0.23 [facility] Absolute Immature Granulocyte <0.03 [facility] Absolute Lymph # 2.39 [facility] alth Absolute [place] # 0.59 [facility] lt Basophils (Bld) [#/Vol] 10*3/uL [facility] Basophils/100 WBC (Bld) 0 % 0 - 2 % [facility] Eosinophils/100 WBC (Bld) 3 % 1 - 4 % [facility] Hematocrit (Bld) [Volume fraction] 38.7 % 36.3 - 47.1 % [facility] Hemoglobin.gastroin testinal spec 1 Ql (Stl) 12.5 g/dL 11.9 - 15.1 g/dL [facility] Immature granulocytes/100 WBC (Bld) 0 % 0 [facility] Lymphocytes/100 WBC (Bld) 26 % 24 - 43 % [facility] MCH (RBC) [Entitic mass] 29.5 pg 25.2 - 33.5 pg [facility] MCHC (RBC) [Mass/Vol] 32.3 g/dL 28.4 - 34.8 g/dL [facility] MCV (RBC) [Entitic vol] 91.3 fL 82.6 - 102.9 fL [facility] Mon[facility]/100 WBC (Bld) 6 % 3 - 12 % [facility] NRBC Automated 0.0 0.0 per 100 WBC [facility] Platelet distribution width (Bld) [Ratio] 11.8 % 11.8 - 14.4 % [facility] Platelet mean volume (Bld) [Entitic vol] 9.3 fL 8.1 - 13.5 fL [facility] Platelets (Bld) [#/Vol] 383 10*3/uL [facility] RBC (Bld) [#/Vol] 4.24 10*6/uL 3.95 - 5.1 1 m/uL [facility] Segmented neutrophils/100 WBC (Bld) 65 % 36 - 65 % [facility] Segs Absolute 6.03 [facility] WBC (Bld) [#/Vol] 9.3 10*3/uL [facility] Comprehensive Metabolic Pane carolyn 06-13-2021 Albumin [Mass/Vol] 4.6 g/dL 3.5 - 5.2 g/dL [facility] Albumin/Globulin [Mass ratio] 1.9 {ratio} [facility] ALP (Bld) [Catalytic activity/Vol] 71 U/L 35 - 104 U/L [facility] ALT [Catalytic activity/Vol] 29 U/L 5 - 33 U/L [facility] Anion gap [Moles/Vol] 11 mmol/L 9 - 17 mmol/L [facility] AST [Catalytic activity/Vol] 21 U/L <32 [facility] Bilirubin [Mass/Vol] 0.43 mg/dL 0.3 - 1.2 mg/dL [facility] Calcium [Mass/Vol] 9.8 mg/dL 8.6 - 10. 4 mg/dL [facility] Chloride [Moles/Vol] 103 mmol/L 98 - 107 mmol/L [facility] CO2 [Moles/Vol] 25 mmol/L 20 - 31 mmol/L [facility] Creatinine [Mass/Vol] 0.49 mg/dL Low 0.50 - 0.90 mg/dL [facility] Free PSA/Total PSA [Mass fraction] 7.0 g/dL 6.4 - 8.3 g/dL [facility] GFR >60 >60 mL/min [facility] GFR Non- >60 >60 mL/min [facility] Glucose [Mass/Vol] 95 mg/dL 70 - 99 mg/dL [facility] Interpretation and review of laboratory results Abnormal [facility] Potassium [Moles/Vol] 4.0 mmol/L 3.7 - 5.3 mmol/L [facility] Sodium [Moles/Vol] 139 mmol/L 135 - 144 mmol/L [facility] Urea nitrogen (BldV) [Mass/Vol] 11 mg/dL 6 - 20 mg/dL [facility] Urea nitrogen/Creatinine (Bld) [Mass ratio] 22 High [facility] Laboratory - Chemistry and C hemistry - challengeon 06-13-2021 GFR/1.73 sq M.predicted MDRD (S/P/Bld) [Vol rate/Area] [facility] Comment on above: Average GFR for 20-2 9 years old: 116 mL/min/1.73sq m Chronic Kidney Disease: <60 mL/min/1.73sq m Kidney failure: <15 mL/min/1.73sq m eGFR calculated using average adult body mass. Additional eGFR calculator available at: http://www.[employer]/multiple_crcl_2011.htm Stage 1: Some kidney damage normal GFR Stage 2: Mild kidney damage GFR 60-89 Stage 3: Moderate kidney damage GFR 30-59 Stage 4: Severe kidney damage GFR 15-29 Stage 5: Severe kidney damage GFR <15 ESRD - chronic treatment by dialysis or transplant Microscopic Urinalysison - [facility] Epithelial Cells UA 5 TO 10 [facility] Interpretation and review of laboratory results Abnormal [facility] Mucus, UA 3+ Abnormal None [facility] RBC, UA 0 TO 2 [facility] WBC, UA 0 TO 2 [facility] Urinalysison 06-13-2021 Bilirubin Urine Negative NEGATIVE [facility] Color, UA Yellow Yellow [facility] Glucose, Ur Negative NEGATIVE [facility] Interpretation and review of laboratory results Abnormal [facility] Ketones Ql (U) Negative NEGATIVE [facility] Leukocyte esterase Test strip Ql (U) Negative NEGATIVE [facility] Nitrite, Urine Negative NEGATIVE [facility] pH, UA 6.5 [facility] Protein, UA Negative NEGATIVE [facility] Specific [place], UA >1.030 [facility] Turbidity UA Clear Clear [facility] Urine Hgb TRACE Abnormal NEGATIVE [facility] Urobilinogen, Urine Normal Normal [facility] XR KNEE RIGHT (3 VIEWS)on No fracture or dislocation. [facility] RIS CONSOLIDATED EXAMINATION: THREE XRAY VIEWS OF THE RIGHT KNEE 05/13/2021 7:47 pm COMPARISON: None. HISTORY: ORDERING SYSTEM PROVIDED HISTORY: fall, swelling TECHNOLOGIST PROVIDED HISTORY: fall, swelling FINDINGS: No fracture, dislocation, or focal osseous lesion is noted. Mild degenerate changes the medial compartment. No significant soft tissue abnormality seen. Olivier Onofre MD - 05/13/2021 EXAMINATION: THREE XRAY VIEWS OF THE RIGHT KNEE 05/13/2021 7:47 pm COMPARISON: None. HISTORY: ORDERING SYSTEM PROVIDED HISTORY: fall, swelling TECHNOLOGIST PROVIDED HISTORY: fall, swelling FINDINGS: No fracture, dislocation, or focal osseous lesion is noted. Mild degenerate changes the medial compartment. No significant soft tissue abnormality seen. IMPRESSION: No fracture or dislocation. [employer] Phone: Radiology Study observation (narrative) [employer] Phone: XR KNEE RIGHT (3 VIEWS)Order ed By: Olivier Bryant on 05-13-2021 [employer] Phone: C Urineon 12-04-2016 C Urine Order added by Austyn andrews rule. Final< 10,000 cfu/ml Mixed gram positive and gram negative terri isolated.This urine contains 3 or more organisms which is inconsistent with clean catch collection. Consider the possibility of contamination during collection.No identification or susceptibility performed as results would be misleading Normal [facility] Comment on above: Performed By: #### U RC ####[facility] (DEFAULT)[address] [place], [place] [address]NSRS[facility]YQF[facility] [place] [address] .UA Microscp Aon 12-02-2016 UA Mucus Present Abnormal Absent [facility] Comment on above: Performed By: #### C [id number] ####[facility] [place] [address] UA Squepi Cells Quant 4 /HPF Normal 0-29 [facility] Comment on above: Performed By: #### C [id number] ####[address] [address] UA WBC Quant 5 /HPF Normal 0-5 [facility] Comment on above: Performed By: #### C [id number] ####[address] [address] Urine, erythrocytes 2 /HPF Normal 0-5 [facility] Comment on above: Performed By: #### C [id number] ####[address] [address] .eGFRon 12-02-2016 eGFR (non-black) mL/min/{1.73_m2} Normal >=60 [facility] Comment on above: Result Comment: Resu lt = 0-14.9 mL/min/1.73 m2 Kidney failure or DialysisResult = 15-29 mL/min/1.73 m2 Severe decrease in GFRResult = 30-59 mL/min/1.73 m2 Moderate decrease in GFRResult >= 60 mL/min/1.73 m2 Normal or increased GFRChronic kidney disease is defined as either kidney damage or GFR < 60 mL/min/1.73 m2 for >= 3 months. Kidney damage is defined as pathologic abnormalities or markers of damage including abnormalities in blood or urine tests or imaging studies. This GFR is NOT used for medication dosing. Performed By: #### E GFR ####[address] [address] Result Comment: Resu lt = 0-14.9 mL/min/1.73 m2 Kidney failure or DialysisResult = 15-29 mL/min/1.73 m2 Severe decrease in GFRResult = 30-59 mL/min/1.73 m2 Moderate decrease in GFRResult >= 60 mL/min/1.73 m2 Normal or increased GFR CBC w/ Diffon 12-02-2016 Erythrocyte distribution width Auto Ratio (RBC) 12.7 % Normal 11.6-14.8 [facility] Comment on above: Performed By: #### C BC ####[address] [place] [address] Erythrocytes (RBC) 4.91 x10*6/mcL Normal 3.80-5.20 [facility] Comment on above: Performed By: #### C BC ####[address] [address] Hematocrit (HCT) 42.7 % Normal 36.0-46.0 [facility] Comment on above: Performed By: #### C BC ####[address] [address] Hemoglobin mass conc (Bld) 14.5 g/dL Normal 12.0-16.0 [facility] Comment on above: Performed By: #### C BC ####[place] [id number] MCH 29.6 pg Normal 27.0-35.0 [facility] Comment on above: Performed By: #### C BC ####[address] [address] MCHC mass conc (RBC) 34.0 % Normal 31.0-37.0 [facility] Comment on above: Performed By: #### C BC ####[address] [address] MCV 87.1 fL Normal 80.0-100.0 [facility] Comment on above: Performed By: #### C BC ####[address] [address] Platelet mean volume (PMV) 7.7 fL Normal 6.7-10.6 [facility] Comment on above: Performed By: #### C BC ####[address] [address] Platelets 386 x10*3/mcL High 150-350 [facility] Comment on above: Performed By: #### C BC ####[address] [address] WBC (Leukocytes) 12.3 x10*3/mcL High 4.5-11.0 [facility] Comment on above: Performed By: #### C BC ####[address] [address] CMPon 12-02-2016 Alanine aminotransferase (ALT) 73 U/L High 14-54 [facility] Comment on above: Performed By: #### C OMP ####[address] [address] Albumin 4.8 g/dL Normal 3.2-4.9 [facility] Comment on above: Performed By: #### C OMP ####[address] [address] Albumin/Globulin Ratio 1.2 {ratio} Normal 1.1-2.2 [facility] Comment on above: Performed By: #### C OMP ####[address] [address] Alk Phos 42 IU/L Normal 32-91 [facility] Comment on above: Performed By: #### C OMP ####[address] [address] Anion gap 14 mmol/L Normal 7-17 [facility] Comment on above: Performed By: #### C OMP ####[address] [address] Aspartate aminotransferase (AST) 55 U/L High 15-41 [facility] Comment on above: Performed By: #### C OMP ####[address] [address] Bili Total 1.0 mg/dL Normal 0.3-1.2 [facility] Comment on above: Performed By: #### C OMP ####[address] [address] BUN/Creatinine Ratio 17.6 mg/mg Normal 15.0-25.0 [facility] Comment on above: Performed By: #### C OMP ####[address] [address] Calcium 10.0 mg/dL Normal 8.5-10.3 [facility] Comment on above: Performed By: #### C OMP ####[address] [address] Chloride 106 mmol/L Normal 98-110 [facility] Comment on above: Performed By: #### C OMP ####[address] [address] CO2 25 mmol/L Normal 22-32 [facility] Comment on above: Performed By: #### C OMP ####[address] [address] Creatinine 0.68 mg/dL Normal 0.44-1.03 [facility] Comment on above: Performed By: #### C OMP ####[place] [address] Glucose mass conc 91 mg/dL Normal 74-118 [facility] Comment on above: Performed By: #### C OMP ####[place] [address]140 Potassium molar conc 4.0 mmol/L Normal 3.4-4.8 [facility] Comment on above: Performed By: #### C OMP ####[address] [address] Protein 8.7 g/dL High 6.5-8.1 [facility] Comment on above: Performed By: #### C OMP ####[address] [address] Sodium 141 mmol/L Normal 133-142 [facility] Comment on above: Performed By: #### C OMP ####[place] [address] Urea nitrogen 12 mg/dL Normal 8-26 [facility] Comment on above: Performed By: #### C OMP ####[address] [address] Diff Autoon 12-02-2016 Baso Absolute 0.0 x10*3/mcL Normal 0.0-0.2 [facility] Comment on above: Performed By: #### . Automated Diff ####[address] [place] [address] Basophils/100 WBC Auto (Bld) 0.2 % Normal 0.0-1.5 [facility] Comment on above: Performed By: #### . Automated Diff ####[address] [address] Eos Absolute 0.2 x10*3/mcL Normal 0.0-0.4 [facility] Comment on above: Performed By: #### . Automated Diff ####[address] [address] Eosinophils/100 leukocytes 1.3 % Normal 0.0-5.4 [facility] Comment on above: Performed By: #### . Automated Diff ####[address] [address] Lymphocytes 2.5 x10*3/mcL Normal 1.0-4.8 [facility] Comment on above: Performed By: #### . Automated Diff ####[address] [address] Lymphocytes/100 leukocytes 20.0 % Low 27.2-40.8 [facility] Comment on above: Performed By: #### . Automated Diff ####[address] [address] [place] Absolute 0.7 x10*3/mcL Normal 0.1-1.1 [facility] Comment on above: Performed By: #### . Automated Diff ####[address] [address] Monocytes/100 leukocytes 5.9 % Normal 3.7-11.9 [facility] Comment on above: Performed By: #### . Automated Diff ####[address] [address] Neutro Absolute 9.0 x10*3/mcL High 1.8-7.7 [facility] Comment on above: Performed By: #### . Automated Diff ####[address] [address] Neutro Auto 72.6 % High 47.2-70.8 [facility] Comment on above: Performed By: #### . Automated Diff ####[place] [address] ED Clinical Summaryon 2016 ED Clinical Summary (Inserted Image. Katherine ble to display) [place] [id number] ed Clinical SummaryPerson InformationName: Tian Wade/ZanderChilango Age: 21 Years : 1995Sex: Female PCP: Fernanod Wyatt MD Status:Single Phone:Race:White Ethnicity:Not or Language:EnglishMRN: [id number] Reason:D - Diarrhea; Vomiting; Nausea; Abdominal pain; Abdominal distention Acuity: 3Enc Type: Emergency Med Service: Emergency MedicineArrival:12/02/2016 16:31:00 Discharge: 12/02/2016 19:01:00 LOS: 000 02:30Checkin:12/02/2016 16:31:00 Checkout: 12/02/2016 19:01:00 Dispo Type: Home or Self CareAddress:[address] [place] [address] Provider Notes:Diagnosis:1:Vomiting and diarrheaProblems Active No Chronic ProblemsSmoking Status: Smoking Status Never smokerFunctional Status:Sensory Deficits:History of Falls:Mobility Assistance Prior to Admission:ADLs:Current Level of Assistance for Self-Care/Mobility:Cogniti ve Status:Allergies No Known Medication AllergiesLaboratory or Other Results This Visit (last charted value for your 12/02/2016 visit) Hematology 12/02/2016 5:13 PM WBC: 12.3 x10 RBC: 4.91 x10 Neutro Auto: 72.6 % -- Normal range between ( 47.2 and 70.8 ) Lymph Auto: 20.0 % -- Normal range between ( 27.2 and 40.8 ) Newberry Auto: 5.9 % -- Normal range between ( 3.7 and 11.9 ) Eos Auto: 1.3 % -- Normal range between ( 0.0 and 5.4 ) Basophil Auto: 0.2 % -- Normal range between ( 0.0 and 1.5 ) Baso Absolute: 0.0 x10 MCV: 87.1 fL -- Normal range between ( 80.0 and 100.0 ) MCHC: 34.0 % -- Normal range between ( 31.0 and 37.0 ) Lymph Absolute: 2.5 x10 Hct: 42.7 % -- Normal range between ( 36.0 and 46.0 ) Newberry Absolute: 0.7 x10 MCH: 29.6 pg -- Normal range between ( 27.0 and 35.0 ) Neutro Absolute: 9.0 x10 Hgb: 14.5 g/dL -- Normal range between ( 12.0 and 16.0 ) Mean Platelet Volume: 7.7 fL -- Normal range between ( 6.7 and 10.6 ) Platelet: 386 x10 Eos Absolute: 0.2 x10 RDW: 12.7 % -- Normal range between ( 11.6 and 14.8 ) Urinalysis 12/02/2016 6:04 PM UA Color: Yellow UA Urobilinogen: 0.2 mg/dL UA Bili: Negative UA Ketones: Negative mg/dL UA Leukocyte Esterase: Moderate UA Nitrite: Negative UA Glucose: Negative mg/dL UA Protein: Negative mg/dL UA Blood: Small UA Spec Grav: 1.027 -- Normal range between ( 1.003 and 1.035 ) UA pH: 5.0 UA Clarity: Hazy UA Source: Clean Catch UA Mucus: Present /LPF UA WBC Quant: 5 /HPF -- Normal range between ( 0 and 5 ) UA RBC Quant: 2 /HPF -- Normal range between ( 0 and 5 ) UA Squepi Cells Quant: 4 /HPF -- Normal range between ( 0 and 29 ) Chemistry 12/02/2016 6:04 PM Urine Preg: Negative 12/02/2016 5:13 PM Creatinine Lvl: 0.68 mg/dL -- Normal range between ( 0.44 and 1.03 ) BUN: 12 mg/dL -- Normal range between ( 8 and 26 ) Glucose Lvl: 91 mg/dL -- Normal range between ( 74 and 118 ) Potassium Lvl: 4.0 mmol/L -- Normal range between ( 3.4 and 4.8 ) AST: 55 IU/L -- Normal range between ( 15 and 41 ) ALT: 73 IU/L -- Normal range between ( 14 and 54 ) Sodium Lvl: 141 mmol/L -- Normal range between ( 133 and 142 ) Lipase Lvl: 14 IU/L -- Normal range between ( 22 and 51 ) Calcium Lvl: 10.0 mg/dL -- Normal range between ( 8.5 and 10.3 ) Albumin Lvl: 4.8 g/dL -- Normal range between ( 3.2 and 4.9 ) Total Protein: 8.7 g/dL -- Normal range between ( 6.5 and 8.1 ) Bili Total: 1.0 mg/dL -- Normal range between ( 0.3 and 1.2 ) Alk Phos: 42 IU/L -- Normal range between ( 32 and 91 ) Chloride: 106 mmol/L -- Normal range between ( 98 and 110 ) CO2: 25 mmol/L -- Normal range between ( 22 and 32 ) Anion Gap: 14 -- Normal range between ( 7 and 17 ) eGFR Non-AA: >60 mL/min/1.73m? eGFR AA: >60 mL/min/1.73m? BUN Crea Ratio: 17.6 -- Normal range between ( 15.0 and 25.0 ) AG Ratio: 1.2 -- Normal range between ( 1.1 and 2.2 )Measurements:Height:Weigh t: 86.2 kgBlood Pressure: /67 mmHgBMI:Procedures No Procedures DocumentedImmunizations No Immunizations Documented This VisitFinal Med List:New Medications[facility] [place] [place] [address] [place] [address], [phone] (Zofran 4 mg oral tablet) 1 Tabs Oral (given by mouth) 3 times a day for 3 Days. Refills: 0.Last Dose: M edications That Were Updated - Follow Current InstructionsOther MedicationsCurrent norethindrone-ethinyl estradiol (Pirmella 1/35 oral tablet) 1 Tabs Oral (given by mouth) every day.Last Dose: M edications that have not changedOther Medicationscitalopram (citalopram 20 mg oral tablet) 1 Tabs Oral (given by mouth) once a day (in the evening).Last Dose: N o Longer Take the Following Medicationsciprofloxacin (Cipro 500 mg oral tablet) 1 Tabs Oral (given by mouth) 2 times a day.Stop Taking Reason:hydrocodone-acetami nophen (hydrocodone-acetaminophen 5mg-325mg oral tablet) 1 Tabs Oral (given by mouth) every 6 hours as needed as needed for pain.Stop Taking Reason:traMADol (traMADol 50 mg oral tablet) 1 Tabs Oral (given by mouth) 2 times a day as needed for pain.Stop Taking Reason:[facility] [address], [address] [place] [address], [phone] (Zofran 4 mg oral tablet) 1 Tabs Oral (given by mouth) 3 times a day for 3 Days. Refills: 0.Other Medicationscitalopram (citalopram 20 mg oral tablet) 1 Tabs Oral (given by mouth) once a day (in the evening).norethindrone-eth inyl estradiol (Pirmella 1/35 oral tablet) 1 Tabs Oral (given by mouth) every day.Care Team Members:Attending Physician: Malena MCCORMACK, SrinivasanConsukira Physician:Referring Physician:Provider Role Assigned UnassignedSrinivasan Naik MD ED Provider 12/02/2016 16:59:47ThiSusanna andre ED Nurse 12/02/2016 17:39:22Follow up:With: Address: When:Fernando Wyatt [address], [address] [place], [place] [phone] Business (1) Within 2 to 4 daysDischarge Orders:Discharge Patient 12/02/16 18:42:00 EDT, Discharge to Home, SelfPatient Education Information:Abdominal Pain, Adult; VOMITING AND DIARRHEA, Nonspecific (Adult); VOMITING (6y-Adult)AAPCC Poison Help line: .[facility] Hotline: [place] Tobacco Quit Line: [place], [place]) [address]: [phone], [place]) [address]: [phone] [facility] [address] [place], [place]: [phone] [facility] ED Note-Physicianon 12-03-19 ED Note-Physician Chief Complaint abd pain, nausea, vomiting, diarrheaHistory of Present Illness Patient is a 21 year old female presenting to the emergency department by private vehicle complaining of abdominal pain. Patient states the symptoms started this morning. Patient describes the the quality of the symptoms as constant. Patient rates the symptoms as moderate, and are unchanged since arriving to the emergency department. Patient symptoms are aggravated by nothing, and alleviated by nothing. Patient complains of nausea, diarrhea, emesis. Patient denies hematemesis, hematochezia. Patient does not have a history of similar symptoms. Patient has not been seen by a physician recently.Review of Systems GENERAL: [Negative for weakness, malaise] EYES: [Negative for injury, pain, redness, discharge] ENT: [Negative for injury, pain , sore throat and discharge] NECK: [Negative for injury, pain, swelling, and stiffness] CARDIOVASCULAR: [Negative for chest pain, palpitations] RESPIRATORY: [Negative for shortness of breath, cough, wheezing, and pleuritic chest pain] ABDOMEN/GI: [Positive for abdominal pain, nausea, emesis, diarrhea Negative for hematochezia, hematemesis] BACK: [Negative for injury or bruising] : [Negative for injury, bleeding, discharge, frequency, hematuria, urgency] MUSCULOSKELETAL: [Negative for arthralgias, injury and deformity] SKIN: [Negative for injury, rash, discoloration] NEURO: [Negative for focal weakness, numbness, tingling, and seizure] ALLERGY/IMMUNOLOGY: [Negative for hives, rash, and new allergies] ENDOCRINE: [Negative for neck swelling, polydipsia, polyuria, marked weight changes, heat/cold intolerance] HEMATOLOGIC/LYMPHATIC: [Negative for swollen lymph nodes, abnormal bleeding, and unusual bruising]Physical Exam CONSTITUTIONAL: [no apparent distress, well appearing] SKIN: [warm, dry, no jaundice, hives or petechiae] EYES: [pupils are equally round, extraocular movements intact without nystagmus, clear conjunctiva, non-icteric sclera] HENT: [normocephalic, atraumatic, moist mucus membranes, oropharynx clear without exudates] NECK: [Nontender and supple with no nuchal rigidity, no lymphadenopathy, full range of motion] PULMONARY: [clear to auscultation without wheezes, rhonchi, or rales, normal excursion, no accessory muscle use and no stridor] CARDIOVASCULAR: [regular rate, rhythm, normal S1 and S2. No appreciated murmurs. Strong radial pulses with intact distal perfusion] GASTROINTESTINAL: [soft, diffusely tender with guarding in the epigastric area, non-distended, no palpable masses, no rebound] GENITOURINARY: [No costovertebral angle tenderness to palpation] LYMPHATICS: [no edema in lower extremities, no lymphadenopathy] MUSCULOSKELETAL: [Extremities are nontender to palpation and have no gross deformity, no edema, redness, or swelling] NEUROLOGIC: [alert and oriented x 3, GCS 15, normal mentation and speech. Moves all extremities x 4 without motor or sensory deficit] PSYCHIATRIC: [normal mood and affect, thought process is clear and linear]Vitals & Measurements T: 36.7 ?C (Oral) RR: 16 BP: 128/91 SpO2: 94% DOSE WT: 86.2 kg Additional Vitals Peripheral Pulse Rate: 106 bpm HighProcedure No qualifying data available.Medical Decision Making This document serves as a record of the services and decisions personally performed and made by the attending physician of record. It was created on his/her behalf by a trained certified medical technician assistant. The creation of this document is based on the provider?s statements to the certified medical technician assistant. Signed by: Sona Pedroza, 12/02/16, 17:04. Scribe Attestation: The information in this document, created by the certified medical technician assistant for me, accurately reflects the services I personally performed and the decisions made by me. pt felt much better after documented treatmentAssessment/Plan 1. Vomiting and diarrhea Orders: ondansetron, 1 tabs, Oral, TID, # 9 tabs, 0 Refill(s), Pharmacy: [facility] 594 Discharge PatientProblem List/Past Medical History Ongoing No chronic problems Historical No qualifying dataMedications Home Cipro 500 mg oral tablet, 500 mg, 1 tabs, Oral, BID citalopram 20 mg oral tablet, 20 mg, 1 tabs, Oral, qPM Cyclafem , 1 tabs, Oral, qPM hydrocodone-acetaminophen 5mg-325mg oral tablet, 1 tabs, Oral, q6hr, PRN traMADol 50 mg oral tablet, 50 mg, 1 tabs, Oral, BID, PRN Inpatient No active inpatient medications Prescriptions No active PrescriptionsAllergies No Known Medication AllergiesSocial History Alcohol Current, 1-2 times per month Substance Abuse Denies All Tobacco Never smokerLab Results Automated Hematology LATEST RESULTS HISTORICAL RESULTS WBC 12/02/16 17:13 12.3 High 06/17/16 9.6 RBC 12/02/16 17:13 4.91 06/17/16 4.76 Hgb 12/02/16 17:13 14.5 06/17/16 13.7 Hct 12/02/16 17:13 42.7 06/17/16 41.1 MCV 12/02/16 17:13 87.1 06/17/16 86.2 MCH 12/02/16 17:13 29.6 06/17/16 28.7 MCHC 12/02/16 17:13 34.0 06/17/16 33.3 RDW 12/02/16 17:13 12.7 06/17/16 12.3 Platelet 12/02/16 17:13 386 High 06/17/16 387 High Mean Platelet Volume 12/02/16 17:13 7.7 06/17/16 7.9 Neutro Auto 12/02/16 17:13 72.6 High 06/17/16 57.5 Lymph Auto 12/02/16 17:13 20.0 Low 06/17/16 34.6 Newberry Auto 12/02/16 17:13 5.9 06/17/16 6.1 Eos Auto 12/02/16 17:13 1.3 06/17/16 1.5 Basophil Auto 12/02/16 17:13 0.2 06/17/16 0.3 Neutro Absolute 12/02/16 17:13 9.0 High 06/17/16 5.5 Lymph Absolute 12/02/16 17:13 2.5 06/17/16 3.3 [place] Absolute 12/02/16 17:13 0.7 03/05/17 0.6 Eos Absolute 12/02/16 17:13 0.2 06/17/16 0.1 Baso Absolute 12/02/16 17:13 0.0 06/17/16 0.0 Routine Chemistry LATEST RESULTS HISTORICAL RESULTS Sodium Lvl 12/02/16 17:13 141 06/17/16 141 Potassium Lvl 12/02/16 17:13 4.0 06/17/16 4.1 Chloride 12/02/16 17:13 106 06/17/16 106 CO2 12/02/16 17:13 25 06/17/16 25 Anion Gap 12/02/16 17:13 14 06/17/16 14 Glucose Lvl 12/02/16 17:13 91 06/17/16 84 BUN 12/02/16 17:13 12 06/17/16 6 Low Creatinine Lvl 12/02/16 17:13 0.68 06/17/16 0.63 eGFR AA 12/02/16 17:13 >60 06/17/16 >60 eGFR Non-AA 12/02/16 17:13 >60 06/17/16 >60 BUN Crea Ratio 12/02/16 17:13 17.6 06/17/16 9.5 Low Bili Total 12/02/16 17:13 1.0 06/17/16 0.2 Low Alk Phos 12/02/16 17:13 42 06/17/16 42 AST 12/02/16 17:13 55 High 06/17/16 22 ALT 12/02/16 17:13 73 High 06/17/16 18 Total Protein 12/02/16 17:13 8.7 High 06/17/16 7.8 Albumin Lvl 12/02/16 17:13 4.8 06/17/16 4.4 AG Ratio 12/02/16 17:13 1.2 Calcium Lvl 12/02/16 17:13 10.0 06/17/16 10.0 Lipase Lvl 12/02/16 17:13 14 Low Testing LATEST RESULTS HISTORICAL RESULTS Urine Preg 12/02/16 18:04 Negative 06/17/16 Negative UA Macroscopic LATEST RESULTS HISTORICAL RESULTS UA Source 12/02/16 18:04 Clean Catch 06/17/16 Clean Catch UA Color 12/02/16 18:04 Yellow 06/17/16 Yellow UA Clarity 12/02/16 18:04 Hazy 06/17/16 Clear UA Spec Grav 12/02/16 18:04 1.027 06/17/16 1.013 UA pH 12/02/16 18:04 5.0 06/17/16 7.0 UA Protein 12/02/16 18:04 Negative 06/17/16 Negative UA Glucose 12/02/16 18:04 Negative 06/17/16 Negative UA Bili 12/02/16 18:04 Negative 06/17/16 Negative UA Urobilinogen 12/02/16 18:04 0.2 06/17/16 0.2 UA Leukocyte Esterase 12/02/16 18:04 Moderate Abnormal 06/17/16 Moderate Abnormal UA Nitrite 12/02/16 18:04 Negative 06/17/16 Negative UA Ketones 12/02/16 18:04 Negative 06/17/16 Negative UA Blood 12/02/16 18:04 Small Abnormal 06/17/16 Negative UA Microscopic LATEST RESULTS HISTORICAL RESULTS UA RBC Quant 12/02/16 18:04 2 06/17/16 2 UA WBC Quant 12/02/16 18:04 5 06/17/16 7 High UA Mucus 12/02/16 18:04 Present Abnormal 06/17/16 Present Abnormal UA Squepi Cells Quant 12/02/16 18:04 4 06/17/16 7Diagnostic Results XRay No qualifying data available. Computerized Tomagraphy No qualifying data available. Ultrasound No qualifying data available. Magnetic Resonance Imaging No qualifying data available. Ashish NoelElectronfrankie signed by S Srinivasan lama MD 12/03/2016 13:[address] [facility] Lipaseon 12-02-2016 Lipase Lvl 14 IU/L Low 22-51 [facility] Comment on above: Performed By: #### L IP ####[address] [address] UA w Culture if Indon 2016 UA Blood Small Abnormal Negative [facility] Comment on above: Performed By: #### U CI ####[address] [address] [address]A [address] Hazy Normal [facility] Comment on above: Performed By: #### U CI ####[address] [address] UA Leukocyte Esterase Moderate Abnormal Negative [facility] Comment on above: Performed By: #### U CI ####[address] [address] UA Nitrite Negative Normal Negative [facility] Comment on above: Performed By: #### U CI ####[address] [address] UA pH 5.0 Normal 4.5 - 7.8 [facility] Comment on above: Performed By: #### U CI ####[address] [address] UA Protein Negative Normal Negative [facility] Comment on above: Performed By: #### U CI ####[address] [address] UA Source Clean Catch Normal [facility] Comment on above: Performed By: #### U CI ####[address] [address] UA Spec Grav 1.027 Normal 1.003-1.035 [facility] Comment on above: Performed By: #### U CI ####[address] [address] UA Urobilinogen 0.2 mg/dL Normal 0.2 - 1.0 [facility] Comment on above: Performed By: #### U CI ####[address] [address] Urine, color Yellow Normal [facility] Comment on above: Performed By: #### U CI ####[address] [address] Urine, glucose Negative Normal Negative [facility] Comment on above: Performed By: #### U CI ####[facility] [facility] [place] [address] Urine, ketones presence Negative Normal Negative [facility] Comment on above: Performed By: #### U CI ####[facility] [place] [address] Urine, urobilinogen Negative Normal Negative [facility] Comment on above: Performed By: #### U CI ####[facility] [facility] [place] [address] Vital Signs Date Time Vital Sign Value Performing Clinician Facility 12-03-2024 13:55-0400 Body height 167.6 cm Daly GUTIERREZ Work Phone: [facility] 12-03-2024 13:55-0400 Body mass index (BMI) [Ratio] 29.34 kg/m2 Daly Rosenbaum PA Work Phone: [facility] 12-03-2024 13:55-0400 Body weight 82.44 kg Daly Rosenbaum PA Work Phone: [facility] 12-03-2024 13:55-0400 Diastolic blood pressure 86 mm[Hg] Daly Rosenbaum PA Work Phone: [facility] 12-03-2024 13:55-0400 Systolic blood pressure 120 mm[Hg] Daly Rosenbaum PA Work Phone: [facility] 10-14-2024 13:14-0400 Body height 170.2 cm Amado Rodriguez [employer] Work Phone: [facility] 10-14-2024 13:14-0400 Body mass index (BMI) [Ratio] 29.44 kg/m2 Amado Rodriguez [employer] Work Phone: [facility] 10-14-2024 13:14-0400 Body weight 85.28 kg Amado Rodriguez [employer] Work Phone: [facility] 10-14-2024 13:14-0400 Heart rate 86 /min Amado Rodriguez [employer] Work Phone: [facility] 10-14-2024 13:14-0400 SaO2% (BldA) [Mass fraction] 98 % Amado Rodriguez [employer] Work Phone: [facility] 05-05-2024 09:33-0500 Body height 170.2 cm Nata Gottlieb [employer] Work Phone: [facility] 05-05-2024 09:33-0500 Body mass index (BMI) [Ratio] 28.35 kg/m2 Nata Fruth [employer] Work Phone: [facility] 05-05-2024 09:33-0500 Body temperature 95.9 [degF] Nata Fruth [employer] Work Phone: [facility] 05-05-2024 09:33-0500 Body weight 82.1 kg Natasadie Bruceth [employer] Work Phone: [facility] 05-05-2024 09:33-0500 Diastolic blood pressure 70 mm[Hg] Nata Fruth [employer] Work Phone: [facility] 05-05-2024 09:33-0500 Heart rate 55 /min Nata Fruth [employer] Work Phone: [facility] 05-05-2024 09:33-0500 SaO2% (BldA) [Mass fraction] 100 % Nata Fruth [employer] Work Phone: [facility] 05-05-2024 09:33-0500 Systolic blood pressure 116 mm[Hg] Nata Fruth [employer] Work Phone: [facility] 05-22-2022 08:36-0500 Body temperature 97.39 [degF] Ana M Barriga DO Work Phone: [facility] 05-22-2022 08:36-0500 Diastolic blood pressure 77 mm[Hg] Ana M Barriga DO Work Phone: [facility] 05-22-2022 08:36-0500 Heart rate 78 /min Ana M Barriga DO Work Phone: [facility] 05-22-2022 08:36-0500 Respiratory rate 18 /min Ana M Ellis DO [facility] 05-22-2022 08:36-0500 SaO2% (BldA) [Mass fraction] 93 % Ana M Barriga DO Work Phone: [facility] [employer] 05-22-2022 08:36-0500 Systolic blood pressure 131 mm[Hg] Ana M Barriga DO Work Phone: [facility] 05-13-2021 19:21-0500 Body temperature 97.2 [degF] Estrellita Richard DO Work Phone: [employer] 05-13-2021 19:21-0500 Diastolic blood pressure 80 mm[Hg] Estrellita Richard DO Work Phone: [employer] 05-13-2021 19:21-0500 Heart rate 65 /min Estrellita Richard DO Work Phone: [employer] 05-13-2021 19:21-0500 Respiratory rate 18 /min Estrellita Richard DO Work Phone: [facility] 05-13-2021 19:21-0500 SaO2% (BldA) [Mass fraction] 99 % Estrellita Richard DO Work Phone: [facility] 05-13-2021 19:21-0500 Systolic blood pressure 121 mm[Hg] Estrellita Richard DO Work Phone: [facility] Encounters Encounter Date Encounter Type Care Provider Facility Start: 12-03-2024 End: 12-03-2024 Bamboo flowsheet Daly GUTIERREZ Work Phone: [facility] Start: 12-03-2024 End: 12-03-2024 Bamboo flowsheet Daly GUTIERREZ Work Phone: [facility] Start: 12-03-2024 End: 12-03-2024 Patient encounter procedure Daly GUTIERREZ Work Phone: [facility] Start: 12-03-2024 End: 12-03-2024 Periodic preventive med est patient 18-39 yrs Daly Rosenbaum PA Work Phone: [facility] Comment on above: Well woman exam with routine gynecological exam Start: 10-14-2024 End: 10-14-2024 Bamboo flowsheet Amado Rodriguez [employer] Work Phone: [facility] Start: 10-14-2024 End: 10-14-2024 Bamboo flowsheet Amado Rodriguez [employer] Work Phone: [facility] Start: 10-14-2024 End: 10-14-2024 Patient encounter status Amado Rodriguez [employer] Work Phone: [facility] Work Phone: Start: 10-14-2024 End: 10-14-2024 Periodic preventive med est patient 18-39 yrs Amado Rodriguez [employer] Work Phone: [facility] Comment on above: Wellness examination (Primary Dx); Weight gain; Dysmenorrhea; ADORE (generalized anxiety disorder) ; Recurrent major depressive disorder, in partial remission ; Screening for cardiovascular condition; Blood tests for routine general physical examination; Abnormal glucose; Screening for thyroid disorder; Vitamin D deficiency; Encounter for vitamin deficiency screening; Screening for lipid disorders; Screening for diabetes mellitus (DM) Start: 10-14-2024 End: 10-14-2024 Physical examination Amado Rodriguez [employer] Work Phone: [facility] Start: 10-14-2024 End: 10-14-2024 ambulatory AMADO RODRIGUEZ Not Available Start: 10-10-2024 End: 10-11-2024 Refill Amado Rodriguez [employer] Work Phone: [facility] Comment on above: Anxiety Start: 09-11-2024 End: 09-11-2024 Refill Anali Harrison LPN Other Phone: [facility] Comment on above: Anxiety Start: 05-05-2024 End: 05-05-2024 Bamboo flowsheet Nata Gottlieb [employer] Work Phone: [facility] Start: 05-05-2024 End: 05-05-2024 Bamboo flowsheet Nata Gottlieb [employer] Work Phone: [facility] Start: 05-05-2024 End: 05-05-2024 Office outpatient visit 15 minutes Nata Gottlieb [employer] Work Phone: [facility] Comment on above: Strep pharyngitis (P rimary Dx) Start: 05-05-2024 End: 05-05-2024 ambulatory NATA GOTTLIEB Not Available Start: 11-25-2023 End: 11-25-2023 ambulatory DALY ROSENBAUM Not Available Start: 11-19-2023 End: 11-19-2023 ambulatory IRVING TRINIDAD Not Available Start: 04-22-2023 End: 04-23-2023 ambulatory ESTRELLITA RICHARD [facility] Start: 05-22-2022 End: 05-22-2022 Emergency department patient visit [facility] Nona BARRIGA [facility] Start: 05-22-2022 End: 05-22-2022 Emergency department patient visit [facility] [place] Nona Barriga DO Work Phone: [facility] ED Comment on above: Blepharoconjunctivit is of both eyes, unspecified blepharoconjunctivitis type (Primary Dx) Start: 10-27-2021 End: 10-28-[address] CALLEJAS LISTED REQUEST Facility:[facility] Start: 10-24-2021 End: 10-24-[address] IRVING TRINIDAD Facility:[facility] Start: 06-13-2021 End: 06-13-2021 Subsequent hospital visit by physician Estrellita Richard DO Work Phone: [facility] Start: 05-13-2021 End: 05-13-2021 Emergency department patient visit Estrellita Richard DO Work Phone: [facility] ED Comment on above: Contusion of right k nee, initial encounter (Primary Dx) Start: 12-02-2016 End: 12-02-2016 Emergency department patient visit Fernando Wyatt Facility: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 Work Phone: Start: 01-07-2018 Microscopic observat ion [Identifier] in Cervix by Cyto stain Estrellita Richard DO Work Phone: Plan of Treatment Date Care Activity Detail Author Start: 11-24-2026 Screening for malign ant neoplasm of cervix [facility] Start: 12-06-2025 End: 12-06-2025 Patient encounter procedure 12/06/2025 1:00 PM EDT Procedure Visit [facility] [address] [place] [place] [address] Irving Trinidad DO [address] [place] [address] [facility] Start: 06-16-2025 Screening for malign ant neoplasm of cervix HPV/Cotest [facility] Start: 12-14-2024 Influenza vaccination [facility] Start: 12-03-2024 End: 12-03-2024 Patient encounter procedure [facility] Comment on above: Arrived Start: 10-14-2024 End: 10-14-2025 25-hydroxyvitamin D3 [Mass/volume] in Serum or Plasma Vitamin D 25 hydroxy Total Lab Routine Blood tests for routine general physical examination Vitamin D deficiency Encounter for vitamin deficiency screening Expected: 10/14/2024 (Approximate), Expires: 10/14/2025 [facility] Comment on above: Expected: 10/14/2024 (Approximate), Expires: 10/14/2025 Start: 10-14-2024 End: 10-14-2025 CBC W Auto Differential panel - Blood CBC and differential Lab Routine Screening for cardiovascular condition Blood tests for routine general physical examination Expected: 10/14/2024 (Approximate), Expires: 10/14/2025 [facility] Comment on above: Expected: 10/14/2024 (Approximate), Expires: 10/14/2025 Start: 10-14-2024 End: 10-14-2025 Comprehensive metabolic 2000 panel - Serum or Plasma Comprehensive metabolic panel Lab Routine Screening for cardiovascular condition Blood tests for routine general physical examination Abnormal glucose Expected: 10/14/2024 (Approximate), Expires: 10/14/2025 [facility] Work Phone: Comment on above: Expected: 10/14/2024 (Approximate), Expires: 10/14/2025 Start: 10-14-2024 End: 10-14-2025 Hemoglobin A1c/Hemoglobin.total in Blood Hemoglobin A1c Lab Routine Blood tests for routine general physical examination Abnormal glucose Screening for diabetes mellitus (DM) Expected: 10/14/2024 (Approximate), Expires: 10/14/2025 [facility] Comment on above: Expected: 10/14/2024 (Approximate), Expires: 10/14/2025 Start: 10-14-2024 End: 10-14-2025 Lipid 1996 panel - Serum or Plasma Lipid panel Lab Routine Screening for cardiovascular condition Blood tests for routine general physical examination Screening for lipid disorders Expected: 10/14/2024 (Approximate), Expires: 10/14/2025 [facility] Comment on above: Expected: 10/14/2024 (Approximate), Expires: 10/14/2025 Start: 10-14-2024 End: 10-14-2025 TSH W/REFLEX TO FT4 TSH W/REFLEX TO FT4 Lab Routine Blood tests for routine general physical examination Screening for thyroid disorder Expected: 10/14/2024 (Approximate), Expires: 10/14/2025 [facility] Comment on above: Expected: 10/14/2024 (Approximate), Expires: 10/14/2025 Start: 10-14-2024 End: 10-14-2024 Patient encounter procedure 10/14/2024 1:00 PM EDT Office Visit [facility] [address] [place] [address] Amado Rodriguez NP [address] [place] [address] Screening for cardiovascular condition; Blood tests for routine general physical examination; Abnormal glucose; Screening for thyroid disorder; Other fatigue; Vitamin D deficiency; Encounter for vitamin deficiency screening; Screening for lipid disorders; Screening for diabetes mellitus (DM) [facility] Comment on above: Screening for cardio vascular condition; Blood tests for routine general physical examination; Abnormal glucose; Screening for thyroid disorder; Other fatigue; Vitamin D deficiency; Encounter for vitamin deficiency screening; Screening for lipid disorders; Screening for diabetes mellitus (DM) Start: 10-12-2024 Influenza vaccination Influenza Vacc ine (#1) [facility] Comment on above: Postponed from 12/14 (Patient Refused) Start: 05-05-2024 End: 05-05-2024 Patient encounter procedure 05/05/2024 9:30 AM EST Office Visit [facility] [address] [place] [address] Nata Gottlieb NP [address] [place] [address] Arrived [facility] Comment on above: Arrived Start: 12-15-2023 Influenza vaccination Influenza Vacc ine (#1) [facility] Start: 04-01-2023 DTaP/Tdap/Td vaccine (6 - Td or Tdap) DTaP/Tdap/Td vaccine (6 - Td or Tdap) [facility] Start: 11-13-2021 Influenza vaccination Flu vaccine (# 1) [facility] Start: 01-07-2021 Screening for malign ant neoplasm of cervix Pap smear [facility] Start: 04-01-2009 Varicella vaccine (1 of 2 - 2-dose childhood series) Varicella vaccine (1 of 2 - 2-dose childhood series) [facility] Start: 2006 Depression Screen Depression Screen [facility] Start: 08-07-1999 COVID-19 Vaccine (1) COVID-19 Vaccin e (1) [facility] Start: 02-05-1995 COVID-19 Vaccine (#1) COVID-19 Vacci ne (#1) [facility] End: 06-13-2021 Culture, Urine [facility] Work Phone: Comment on above: Once for 1 Occurrenc es starting 06/13/2021 until 06/13/2021 Cytology Cervical or vaginal smear or scraping study Pap Smear Pathology and Cytology Routine Well woman exam with routine gynecological exam Ordered: 12/03/2024 [facility] Work Phone: Comment on above: Ordered: 12/03/2024 Human papilloma viru s DNA [Presence] in Unspecified specimen by Probe with amplification HPV DNA probe, amplified Microbiology Routine Well woman exam with routine gynecological exam Ordered: 12/03/2024 [facility] Comment on above: Ordered: 12/03/2024 Immunizations Immunization Date Immunization Notes Care Provider [facility] 02-08-2022 influenza, injectabl e, quadrivalent, preservative free Nata Fruth [employer] Work Phone: [facility] 02-08-2022 influenza virus vacc ine, unspecified formulation Nata Fruth [employer] Work Phone: [facility] 03-02-2021 influenza, injectabl e, quadrivalent, preservative free Nata Fruth [employer] Work Phone: [facility] 05-29-2020 influenza, seasonal, injectable Nata Fruth [employer] Work Phone: [facility] 01-12-2019 influenza, injectabl e, quadrivalent, contains preservative Nata Fruth [employer] Work Phone: [facility] 04-02-2013 influenza virus vacc ine, unspecified formulation Estrellita Richadr DO Work Phone: [facility] 04-02-2013 influenza virus vacc ine, whole virus Nata Fruth [employer] Work Phone: [facility] 04-01-2013 tetanus toxoid, redu ajay diphtheria toxoid, and acellular pertussis vaccine, adsorbed Estrellita Richard DO Work Phone: [facility] 02-22-2011 influenza, seasonal, injectable, preservative free Nata Fruth [employer] Work Phone: [facility] 05-18-2010 hepatitis A vaccine, pediatric/adolescent dosage, 2 dose schedule Nata Fruth [employer] Work Phone: [facility] 05-18-2010 human papilloma viru s vaccine, quadrivalent Nata Fruth [employer] Work Phone: [facility] 02-08-2010 influenza, seasonal, injectable, preservative free Nata Fruth [employer] Work Phone: [facility] 12-08-2009 human papilloma viru s vaccine, quadrivalent Nata Fruth [employer] Work Phone: [facility] 10-06-2009 hepatitis A vaccine, pediatric/adolescent dosage, 2 dose schedule Nata Fruth [employer] Work Phone: [facility] 10-06-2009 human papilloma viru s vaccine, quadrivalent Nata Fruth [employer] Work Phone: [facility] 10-06-2009 meningococcal polysaccharide (groups A, C, Y and W-135) diphtheria toxoid conjugate vaccine (MCV4P) Nata Fru [employer] Work Phone: [facility] 03-04-2009 novel Influenza-H1N1 -09, live virus for nasal administration Nata Fruth [employer] Work Phone: [facility] 12-27-2008 tetanus toxoid, redu ajay diphtheria toxoid, and acellular pertussis vaccine, adsorbed Nata Fruth [employer] Work Phone: [facility] 11-30-1999 diphtheria, tetanus toxoids and acellular pertussis vaccine, unspecified formulation Nata Fruth [employer] Work Phone: [facility] 11-30-1999 poliovirus vaccine, unspecified formulation Nata Fruth [employer] Work Phone: [facility] 09-02-1997 diphtheria, tetanus toxoids and acellular pertussis vaccine, unspecified formulation Nata Fruth [employer] Work Phone: [facility] 09-02-1997 haemophilus influenz ae type b vaccine, conjugate unspecified formulation Nata Fru [employer] Work Phone: [facility] 09-02-1997 measles, mumps and r ubella virus vaccine Nata Fruth [employer] Work Phone: [facility] 02-05-1996 diphtheria, tetanus toxoids and pertussis vaccine Nata Fruth [employer] Work Phone: [facility] 02-05-1996 measles, mumps and r ubella virus vaccine Nata Fruth [employer] Work Phone: [facility] 02-14-1995 DTP-Haemophilus infl uenzae type b conjugate vaccine Nata Fruth [employer] Work Phone: [facility] 02-14-1995 hepatitis B vaccine, pediatric or pediatric/adolescent dosage Nata Fruth [employer] Work Phone: [facility] 02-14-1995 trivalent poliovirus vaccine, live, oral Nata Fruth [employer] Work Phone: [facility] 1994 DTP-Haemophilus infl uenzae type b conjugate vaccine Nata Fruth [employer] Work Phone: [facility] 1994 trivalent poliovirus vaccine, live, oral Nata Fruth [employer] Work Phone: [facility] 1994 DTP-Haemophilus infl uenzae type b conjugate vaccine Nata Fruth [employer] Work Phone: [facility] 1994 hepatitis B vaccine, pediatric or pediatric/adolescent dosage Nata Fruth [employer] Work Phone: [facility] 1994 trivalent poliovirus vaccine, live, oral Nata Fruth [employer] Work Phone: [facility] 1994 hepatitis B vaccine, pediatric or pediatric/adolescent dosage Nata Fruth [employer] Work Phone: [facility] Payers Date Payer Category Payer [facility] er [id number] 2022 Unknown [id number] 2016 Unknown 1994 Unknown [id number] 1994 Unknown [id number] 1994 Unknown [id number] 1994 Unknown [id number] 1994 Unknown [id number] 1994 Unknown [id number] 1994 Unknown [id number] [id number] 1994 Unknown [id number] 1959 Unknown [id number] Social History Date Type Detail Facility Start: 09-17-2012 End: 08-02-2023 Tobacco smoking status [facility] Never smoked tobacco [facility] Start: 09-17-2012 End: 08-02-2023 Tobacco use and exposure Smokeless tobacco non-user [employer] Phone: Start: 05-13-2021 End: 05-22-2022 Alcohol intake Current non-drinker of alcohol (finding) [facility] Work Phone: Start: 05-13-2021 End: 10-14-2024 Alcohol intake [facility] Work Phone: Start: 1995 Sex Assigned At Not on file [facility] Work Phone: Start: 05-12-2022 End: 05-22-2022 Exposure to SARS-CoV-2 (event) Not sure [employer] Work Phone: Start: 05-05-2024 End: 12-03-2024 Alcoholic beverage intake Ex-drinker (finding) [facility] Start: 11-19-2023 End: 10-14-2024 Tobacco use panel [facility] Work Phone: Start: 10-26-2022 Alcohol Comment occasional [facility] How often do you nee d to have someone help you when you read instructions, pamphlets, or other written material from your doctor or pharmacy [SILS] Never [facility] Within the last year , have you been afraid of your partner or ex-partner? No [facility] Are you now , , , , never or living with a partner? Never [facility] How often to you hav e a drink containing alcohol? 2-4 times a month [facility] How many standard drinks containing alcohol do you have on a typical day? 3 or 4 [facility] How hard is it for y ou to pay for the very basics like food, housing, medical care, and heating Not hard at all [facility] Do you feel stress - tense, restless, nervous, or anxious, or unable to sleep at night because your mind is troubled all the time - these days [OSQ] Rather much [facility] (I/We) worried wheth er (my/our) food would run out before (I/we) got money to buy more. Never true [facility] Functional Status Date Assessment Result Facility 10-14-2024 Patient Health Quest ionnaire 2 item (PHQ-2) [Reported] [facility] 10-14-2024 Total score [AUDIT-C] 3 10/15/19 25 10:01 AM Amairani Fragoso [facility] 10-14-2024 How often to you hav e a drink containing alcohol? 2-4 times a month 10/14/2024 10:01 AM EDT Mychart, Generic 2-4 times a month [facility] 10-14-[address] inks containing alcohol do you have on a typical day? 3 or 4 10/14/2024 10:01 AM EDT Mychart, Generic 3 or 4 [facility] 10-14-2024 How often do you hav e 6 or more drinks on 1 occasion? Never 10/14/2024 10:01 AM EDT Mychart, Generic Never [facility] Clinical Notes 05-13-2021 to 12-03-2024 ELIANE Espinoza - 12/03/2024 2:00 PM Best Rodriguez NP - 10/14/2024 1:00 PM EDTTelephone Encounter - Anali Harrison LPN - 09/11/2024 3:48 PM Jacy Gottlieb NP - 05/05/2024 9:30 AM EST Note Date & Type Note Facility 12-03-2024 History of Presen t illness Narrative Reason for Appointment: Patient ID: Tian Wade [...] and responsive to treatment 10/25/2022 Vaginal delivery ([facility]) Social History Tobacco Use Smoking status: Never [...] nursing note reviewed. Exam conducted with a homeopathic doctor present. Vitals: Estimated body mass index is 29.34 kg/m as calculated from the following: Height as [...] by Sharla Hewitt LPN on behalf of: ELIANE Espinoza documented in this encounter [facility] 10-14-2024 History of Presen t illness Narrative Images from the original note were not included. Tian Wade is a 29 y.o. female presents with chief complaint of No chief complaint on file. HPI: Seen for wellness Does report major life changes since last visit Grand[place]e , family member in [facility], helping care for 14 year old sister Feels her current mental health medications are doing as good as expected with current life events Has tried getting off of celexa in past but did not tolerate-feeling worse depression Has increased snacking and has gained almost 20 pounds in past 4 months with above life events happening LABS- 04/2023 HEP C SCREENING- 01/2018 HIV SCREENING- 01/2018 PAP- 10/2021- NILM WELLNESS- 04/2023 VACCINES- tdap 2012 [employer] MANAGER- Dr Trinidad/Erika DENTIST- Dr Ferrara CLOUD ARCHITECT- Pawel/Errol SUBJECTIVE: MEDICATIONS: Current Outpatient Medications Medication Instructions busPIRone (BUSPAR) 30 mg, Oral, 2 times daily citalopram (CELEXA) 40 mg, Oral, Daily ALLERGIES: No Known Allergies SURGICAL HISTORY: Past Surgical History: Procedure Laterality Date SECTION, CLASSIC 07/25/2022 SECTION, LOW TRANSVERSE FAMILY HISTORY: Family History Problem Relation Name Age of Onset Obesity Mother Depression Mother Allergies Mother Other (thyroid issue) Mother Hypertension Mother Anemia Daughter Other (hx of kidney reflux) Daughter Anemia Maternal Grandmother Other (thyroid issue) Maternal Grandmother Mental illness Maternal Grandmother Diabetes Maternal Grandfather Hyperlipidemia Maternal Grandfather Heart disease Maternal Grandfather Cancer Maternal Grandfather Diabetes Paternal Grandmother Diabetes Paternal Grandfather SOCIAL HISTORY: Social History Tobacco Use Smoking status: Never Smokeless tobacco: Never Substance Use Topics Alcohol use: Not Currently Comment: occasional Drug use: Never Depression: Not at risk (10/14/2024) PHQ-2 PHQ-2 Score: 2 REVIEW OF SYMPTOMS: Review of Systems Constitutional: Positive for appetite change and unexpected weight change. Negative for fatigue and fever. Weight increase HENT: Negative for congestion, dental problem, hearing loss, sore throat, tinnitus, trouble swallowing and voice change. Eyes: Negative for visual disturbance. Respiratory: Negative for cough, chest tightness, shortness of breath and wheezing. Cardiovascular: Negative for chest pain, palpitations and leg swelling. Gastrointestinal: Negative for abdominal distention, abdominal pain, blood in stool, constipation, diarrhea, nausea, rectal pain and vomiting. Genitourinary: Negative for difficulty urinating, dysuria, frequency, hematuria and urgency. Musculoskeletal: Negative for arthralgias, gait problem, joint swelling and myalgias. Skin: Negative for pallor, rash and wound. Neurological: Negative for dizziness, tremors, seizures, syncope, weakness, light-headedness, numbness and headaches. Psychiatric/Behavioral: Positive for dysphoric mood. Negative for agitation, behavioral problems, confusion, decreased concentration, hallucinations, self-injury, sleep disturbance and suicidal ideas. The patient is nervous/anxious. The patient is not hyperactive. Hematological: Does not bruise/bleed easily. Endocrine: Negative for cold intolerance, heat intolerance, polydipsia, polyphagia and polyuria. Allergic/Immunologic: Negative for environmental allergies. OBJECTIVE: Visit Vitals Pulse 86 Ht 5' 7 Wt 188 lb SpO2 98% BMI 29.44 kg/m OB Status Implant Smoking Status Never BSA 2.01 m Physical Exam Vitals and nursing note reviewed. Constitutional: Appearance: Normal appearance. She is obese. HENT: Head: Normocephalic and atraumatic. Eyes: Extraocular Movements: Extraocular movements intact. Conjunctiva/sclera: Conjunctivae normal. Pupils: Pupils are equal, round, and reactive to light. Cardiovascular: Rate and Rhythm: Normal rate and regular rhythm. Pulses: Normal pulses. Heart sounds: Normal heart sounds. No murmur heard. No friction rub. No gallop. Pulmonary: Effort: Pulmonary effort is normal. No respiratory distress. Breath sounds: Normal breath sounds. No wheezing. Chest: Chest wall: No tenderness. Abdominal: General: Abdomen is flat. Bowel sounds are normal. There is no distension. Palpations: Abdomen is soft. Tenderness: There is no abdominal tenderness. There is no guarding. Musculoskeletal: General: No swelling, tenderness, deformity or signs of injury. Normal range of motion. Cervical back: Normal range of motion and neck supple. Right lower leg: No edema. Left lower leg: No edema. Lymphadenopathy: Cervical: No cervical adenopathy. Skin: General: Skin is warm and dry. Capillary Refill: Capillary refill takes less than 2 seconds. Coloration: Skin is not jaundiced. Findings: No bruising, erythema or rash. Neurological: General: No focal deficit present. Mental Status: She is alert and oriented to person, place, and time. Mental status is at baseline. Cranial Nerves: No cranial nerve deficit. Sensory: No sensory deficit. Motor: No weakness. Coordination: Coordination normal. Gait: Gait normal. Psychiatric: Mood and Affect: Mood normal. Behavior: Behavior normal. Thought Content: Thought content normal. Judgment: Judgment normal. ASSESSMENT AND PLAN: Assessment/Plan Diagnoses and all orders for this visit: Wellness examination Wellness performed at office visit today. Height, weight, BMI, problem list, and immunizations records reviewed. Dental care discussed with patient. Encouraged annual vision screenings and semi-annual dental care. Encouraged to eat a diet that is rich in plant-based foods and lean protein. Encouraged regular periods of exercise. Limit or eliminate junk food and sources of excess calories. Encouraged to maintain open communication with provider regarding any changes in condition. Encouraged 150 minutes of exercise weekly or amount appropriate to current level of function. Discussed family/friend/social support and importance of maintaining emotional connections. Follow up as discussed. Patient verbalized understanding of importance of keeping open communication with health care providers. Weight gain Encouraged meal tracking Regular exercise Gum chewing Meditation to block out food noise Dysmenorrhea Continue iud use ADORE (generalized anxiety disorder) Discussed current treatment at length-pt would prefer to keep current meds as ordered and work towards meditation and organizing life sructure Recurrent major depressive disorder, in partial remission See above Screening for cardiovascular condition - Comprehensive metabolic panel; Future - CBC and differential; Future - Lipid panel; Future Blood tests for routine general physical examination - Comprehensive metabolic panel; Future - TSH W/REFLEX TO FT4; Future - CBC and differential; Future - Vitamin D 25 hydroxy Total; Future - Lipid panel; Future - Hemoglobin A1c; Future Abnormal glucose - Comprehensive metabolic panel; Future - Hemoglobin A1c; Future Screening for thyroid disorder - TSH W/REFLEX TO FT4; Future Vitamin D deficiency - Vitamin D 25 hydroxy Total; Future Encounter for vitamin deficiency screening - Vitamin D 25 hydroxy Total; Future Screening for lipid disorders - Lipid panel; Future Screening for diabetes mellitus (DM) - Hemoglobin A1c; Future Follow up in about 6 months (around 04/16/2025) for chronic. documented in this encounter [facility] 09-11-2024 Telephone encounter Note REF out of the office Attempted to call ptBeth murphy left notifying her that she is due for wellness/med follow up. [employer] message sent to pt [facility] 09-11-2024 Miscellaneous Notes REF out of the office Attempted to call ptBeth murphy left notifying her that she is due for wellness/med follow up. [employer] message sent to pt Pt called rx refill line and requested [facility]rm ref[facility]. Last seen for strep 04/2024 Routine appt 08/2023 No follow up on file documented in this encounter [facility] 09-11-2024 Telephone encounter Note Pt called rx refill line and requested [facility]rm ref[facility]. Last seen for strep 04/2024 Routine appt 08/2023 No follow up on file [facility] 05-05-2024 History of Presen t illness Narrative Tian Wade is a 28 y.o. female presents with chief complaint of Sore Throat (Started Saturday; both kids had strep last week/Both sides of neck is sore and left side has a lump/Also has a little cough/Was taking DayQuil but is not helping) HPI: Sore Throat Associated symptoms include trouble swallowing. [employer]; children both +strep. Pt with fever sore throat swollen tender glands and exudate on tonsils. Denies cough or short of breath SUBJECTIVE: MEDICATIONS: Current Outpatient Medications Medication Instructions atomoxetine (STRATTERA) 25 mg, Oral, Daily, Swallow capsule whole; do not open. If opened accidentally, do not touch eyes; wash hands immediately (product is an eye irritant). busPIRone (BUSPAR) 30 mg, Oral, 2 times daily citalopram (CELEXA) 40 mg, Oral, Daily ALLERGIES: No Known Allergies SURGICAL HISTORY: Past Surgical History: Procedure Laterality Date SECTION, CLASSIC 07/25/2022 FAMILY HISTORY: Family History Problem Relation Name Age of Onset Obesity Mother Depression Mother Allergies Mother Other (thyroid issue) Mother Hypertension Mother Anemia Daughter Other (hx of kidney reflux) Daughter Anemia Maternal Grandmother Other (thyroid issue) Maternal Grandmother Mental illness Maternal Grandmother Diabetes Maternal Grandfather Hyperlipidemia Maternal Grandfather Heart disease Maternal Grandfather Cancer Maternal Grandfather Diabetes Paternal Grandmother Diabetes Paternal Grandfather SOCIAL HISTORY: Social History Tobacco Use Smoking status: Never Smokeless tobacco: Never Substance Use Topics Alcohol use: Not Currently Comment: occasional Drug use: Never Depression: Not at risk (04/22/2023) PHQ-2 PHQ-2 Score: 0 REVIEW OF SYMPTOMS: Review of Systems Constitutional: Positive for fatigue and fever. HENT: Positive for sore throat and trouble swallowing. Eyes: Negative. Respiratory: Negative. Cardiovascular: Negative. Gastrointestinal: Negative. Genitourinary: Negative. Musculoskeletal: Negative. Skin: Negative. Neurological: Negative. Psychiatric/Behavioral: Negative. Hematological: Negative. Endocrine: Negative. Allergic/Immunologic: Negative. OBJECTIVE: Visit Vitals BP 116/70 (BP Location: Left arm, Patient Position: Sitting, BP Cuff Size: Adult) Pulse 55 Temp 95.9 F (Tympanic) Ht 5' 7 Wt 181 lb SpO2 100% BMI 28.35 kg/m OB Status Implant Smoking Status Never BSA 1.97 m Physical Exam Constitutional: Appearance: Normal appearance. HENT: Head: Normocephalic and atraumatic. Right Ear: Tympanic membrane, ear canal and external ear normal. Left Ear: Tympanic membrane, ear canal and external ear normal. Nose: Nose normal. Mouth/Throat: Mouth: Mucous membranes are moist. Pharynx: Oropharyngeal exudate and posterior oropharyngeal erythema present. Eyes: Extraocular Movements: Extraocular movements intact. Conjunctiva/sclera: Conjunctivae normal. Pupils: Pupils are equal, round, and reactive to light. Cardiovascular: Rate and Rhythm: Normal rate and regular rhythm. Pulses: Normal pulses. Heart sounds: Normal heart sounds. Pulmonary: Effort: Pulmonary effort is normal. Breath sounds: Normal breath sounds. Musculoskeletal: General: Normal range of motion. Cervical back: Tenderness present. Lymphadenopathy: Cervical: Cervical adenopathy present. Skin: General: Skin is warm and dry. Neurological: General: No focal deficit present. Mental Status: She is alert and oriented to person, place, and time. Mental status is at baseline. Psychiatric: Mood and Affect: Mood normal. Behavior: Behavior normal. Thought Content: Thought content normal. Judgment: Judgment normal. ASSESSMENT AND PLAN: Assessment/Plan Problem List Items Addressed This Visit None Visit Diagnoses Strep pharyngitis - Primary Relevant Medications amoxicillin (Amoxil) 500 MG capsule Centor score of 4 Treat symptoms as needed. Stay well hydrated take amoxicillin as directed until gone. Call with any concerns. To ER for worsening or concerning symptoms. Follow up schedule a wellness. documented in this encounter [facility] 05-22-2022 [facility] Discharg e instructions Ana M Barriga DO - 05/22/2022 9:13 AM EST Please follow up with opthalmology in the next 3-4 days, if not improving, or return to the ER if symptoms are getting worse, or if swelling worsens, or if vision continues to get worse The following attachments cannot be sent through Care Everywhere.Conjunctivitis (Faroese)documented in this encounter [employer] Phone: 05-13-2021 [facility] Discharg e instructions Laurie Muñoz APRN - LEWIS - 05/13/2021 Maintain a Samir bandage for comfort. Rest, ice intermittently and elevate the right lower extremity over the next 48 to 78 hours as directed. Take ibuprofen as directed if needed for pain. Follow-up with PCP for reevaluation next week. Return for increased pain, fever, difficulty breathing, vomiting or any new or worsening signs or symptoms for The following attachments cannot be sent through Care Everywhere.Contusion (Faroese)documented in this encounter [employer] Phone: Evaluation note Diagnosis Contusion of right knee, initial encounter- Primary documented in this encounter [employer] Phone: evaluation note* Diagnosis Blepharoconjunctivitis of both eyes, unspecified blepharoconjunctivitis type- Primary documented in this encounter [facility] [employer] Phone: evaluation note* Diagnosis Strep pharyngitis- Primary [facility] Diagnosis Anxiety Anxiety state, unspecified [facility] Diagnosis Anxiety Anxiety state, unspecified [facility] Diagnosis Wellness examination- Primary Weight gain Other symptoms concerning nutrition, metabolism, and development Dysmenorrhea ADORE (generalized anxiety disorder) Generalized anxiety disorder Recurrent major depressive disorder, in partial remission Screening for cardiovascular condition Screening for other and unspecified cardiovascular conditions Blood tests for routine general physical examination Laboratory examination ordered as part of a routine general medical examination Abnormal glucose Screening for thyroid disorder Vitamin D deficiency Encounter for vitamin deficiency screening Screening for lipid disorders Screening for diabetes mellitus (DM) Screening for diabetes mellitus [facility] Diagnosis Well woman exam with routine gynecological exam Routine gynecological examination documented in this encounter [facility] Summary Purpose Family History No Family History Records FoundNo Family History Records FoundNo Family History Records FoundNo Family History Records FoundNo Family History Records Found Advance Directives Documents on File Type Date Recorded Patient 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 DATE CREATED AUTHOR AUTHOR'S ORGANIZ ATION 12/06/2021 [facility] DATE CREATED AUTHOR AUTHOR'S ORGANIZ ATION 04/24/2023 [facility] DATE CREATED AUTHOR AUTHOR'S ORGANIZ ATION 10/16/2024 [facility] [employer] Reason for Visit (unrecogniz ed section and content) Reason Comments Knee Pain fell on ice last nig ht, pain in right knee Reason Comments Conjunctivitis Suspected pinkeye, d ay 2 of waking up with eyes glued shut. Reason Comments Sore Throat Started Saturday; both kids had strep last weekBoth sides of neck is sore and left side has a lumpAlso has a little coughWas taking DayQuil but is not helping Reason Onset Date Comments Med Refill 09/11/2024 Reason Comments Med Refill Reason Comments Well Women Visit Ordered Prescriptions (unrec ognized section and content) Prescription Sig Dispensed Refills Start Date End Da te ibuprofen (ADVIL;MOTRIN) 600 MG tablet Take 1 tablet by mouth 3 times daily as needed for Pain 30 tablet 0 05/13/2021 Prescription Sig Dispensed Refills Start Date End Da te erythromycin (ROMYCIN) 5 MG/GM ophthalmic ointment Apply to the 1/2 conjunctival sac bilaterally every 4 hours for 7 days. 1 each 0 05/22/2022 06/01/2022 Care Teams (unrecognized sec tion and content) Managing Supervisor Relationship Specialty Start Date End Date Estrellita Richard DO [address] [place] [address] PCP - General Family Medicine 06/27/17 Managing Supervisor Relationship Specialty Start Date End Date Estrellita Richard DO [address] [place] [address] PCP - General Family Medicine 06/27/17 Managing Supervisor Relationship Specialty Start Date End Date Estrellita Richard DO [address] [place] [address] PCP - General Family Medicine 06/27/17 Managing Supervisor Relationship Specialty Start Date End Date Estrellita Richard DO [address] [place] [address] PCP - General Family Medicine 08/21/22 Nata Gottlieb [employer] [address] [place] [address] PCP - [employer] 09/14/23 Managing Supervisor Relationship Specialty Start Date End Date Estrellita Rcihard DO [address] [place] [address] PCP - General Family Medicine 08/21/22 Nata Gottlieb [employer] [address] [place] [address] PCP - [employer] 09/14/23 Managing Supervisor Relationship Specialty Start Date End Date Estrellita Richard DO [address] [place] [address] PCP - General Family Medicine 08/21/22 Managing Supervisor Relationship Specialty Start Date End Date Estrellita Richard DO [address] [place], [place] [id number] PCP - General Family Medicine 08/21/22 Managing Supervisor Relationship Specialty Start Date End Date Estrellita Richard DO [address] [place] [phone] PCP - General Family Medicine 08/21/22 Managing Supervisor Relationship Specialty Start Date End Date Estrellita Richard DO [address] [place] [id number] PCP - General Family Medicine 08/21/22 Managing Supervisor Relationship Specialty Start Date End Date Estrellita Richard DO [address] [place] [id number] PCP - General Family Medicine 08/21/22 Managing Supervisor Relationship Specialty Start Date End Date Estrellita Richard DO [address] [place] [address] PCP - General Family Medicine 08/21/22 Scheduled Active and Recently Administ ered Medications (unrecognized section and content) Medication Order 05/20/2022 05/21/2022 05/22/2022 erythromycin (ROMYCIN) ophthalmic ointment (COMPLETED) Both Eyes, ONCE, On Sat05/22/22 at 0915, For 1 dose, Apply 1/2 inch to the conjunctival sac of both eyes every 4 hours for 7 days 0922 (Given - Provid er: Umer Narvaez RN) FOR RECORDS PERTAINING TO PATIENTS WHO ARE OR HAVE BEEN ENROLLED IN A CHEMICAL DEPENDENCY/SUBSTANCEABUSE PROGRAM, SOME INFORMATION MAY BE OMITTED. This clinical summary was aggregated from multiple sources. Caution should be exercised in using it in the provision of clinical care. This summary normalizes information from multiple sources, and as a consequence, information in this document may materially change the coding, format and clinical context of patient data. In addition, data may be omitted in some cases. CLINICAL DECISIONS SHOULD BE BASED ON THE PRIMARY CLINICAL RECORDS. [facility] [employer] [facility]. provides no warranty or guarantee of the accuracy or completeness of information in this document.
[2024-12-09 08:09] LABS: Age Gdln ACOG Testing Note (.); IGP, Aptima HPV, rfx 16/18,45 Note (.)
== END 2024-12-03 18:46 | disposition home or self-care (01) ==
LOC: LAB 18:45
PROVIDERS: Visit Provider Physician Assistant
DX: Z01.419 Encounter for gynecological examination (general) (routine) without abnormal findings (principal)
CPT/HCPCS: 87624; 88175